=== PATIENT | female | born 1970 | race Hispanic/Latino ===

== ENCOUNTER 2017-05-12 05:51 | Emergency (ER) | payer OTHER ==
[2017-05-12 06:51] LABS: Absolute Lymphocytes (CBC) 0.8 K/uL (0.7-4.9); Absolute Monocytes 0.7 K/uL (0.1-1.3); Absolute Neutrophil 13.4 K/uL (1.8-8.0); Eosinophils % 0.5 % (0-4.4); Hematocrit 36.4 % (36.0-45.0); Lymphocytes % 5.2 % (15.3-44.8); MCH 30.4 pg (27.0-35.0); MCV 92.7 fL (80-100); MPV 11.9 fL (7.6-11.3); Monocytes % 4.9 % (3.3-12.3); RBC Red Blood Cell Count 3.92 M/uL (3.86-4.86)
[2017-05-12 07:02] LABS: Potassium 3.7 mEq/L (3.6-5.0)
[2017-05-12 07:07] LABS: Protime INR 2.08
[2017-05-12 07:08] LABS: Albumin 4.7 g/dL (3.2-5.5); Bilirubin Direct 0.2 mg/dL (0-0.2); Bilirubin Total 1.3 mg/dL (0.3-1.2); Magnesium 1.6 mg/dL (1.8-2.5); Protein, Total 7.8 g/dL (6.0-8.3)
[2017-05-12 07:10] LABS: Urine Blood NEGATIVE (NEG); Urine Glucose NEGATIVE (NEG); Urine Protein 2+ (NEG); Urine pH 5.5 (5.0-7.0)
[2017-05-12 07:12] LABS: CKMB Creatine Kinase MB 1.1 ng/ml (0.3-4.0)
--- NOTE | 2017-05-12 07:55 | RAD REPORT ---
EXAM DESCRIPTION: Nel Single View05/12/2017 6:35 am CLINICAL HISTORY: Cough COMPARISON: 2017 FINDINGS: The lungs appear clear of acute infiltrate. The heart is normal size IMPRESSION: No acute abnormalities displayed
[2017-05-12] MEDS ORDERED: ACETAMINOPHEN 500 MG TAB ONE (08:31)
[2017-05-12] MEDS ORDERED: KETOROLAC 30 MG/ML INJ ONE (08:31)
[2017-05-12] MEDS ORDERED: MAGNESIUM SULFATE 1 gm IVPB 1 GM/100 ML BAG IV ONE (08:32)
--- NOTE | 2017-05-12 08:46 | ER ---
Nurse's Notes [facility] Name: Cindy Alfred Age: 47 yrs Sex: Female : 1970 Arrival Date: 05/12/2017 Time: 05:51 Bed 5 Private MD: Diagnosis: Cough;Leukocytosis Presentation: 05/12 05:55 Presenting complaint: Patient states: that she woke up this am at 0500 with a temp of fc 100.0, pain all over, cough, congestion with blood tinged sputum. Transition of care: patient was not received from another setting of care. Onset of symptoms was May 12, 2017 at 05:00. Care prior to arrival: None. 05:55 Method Of Arrival: Ambulatory 05:55 Acuity: LIZETT 3 Triage Assessment: 06:14 General: Appears in no apparent distress. Behavior is calm, cooperative. Pain: ak1 Complains of pain in all over body aches, headache. EENT: Parent/caregiver reports the patient having throat pain. Neuro: No deficits noted. Cardiovascular: No deficits noted. Respiratory: Airway is patent Breath sounds are clear bilaterally. GI: No signs and/or symptoms were reported involving the gastrointestinal system. : No signs and/or symptoms were reported regarding the genitourinary system. Derm: No signs and/or symptoms reported regarding the dermatologic system. Musculoskeletal: No signs and/or symptoms reported regarding the musculoskeletal system. 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 LMP N/A - Post-menopause fc Historical: - Allergies: 06:15 Codeine; 06:15 Vicodin; fc - Home Meds: 06:15 mycophenolate mofetil 500 mg Oral tab 2 tabs 2 times per day [Active]; losartan 50 mg fc oral tab 1 tab once daily [Active]; spironolactone 25 mg Oral tab 1 tab once daily [Active]; furosemide 40 mg Oral tab 1 tab once daily [Active]; levothyroxine 75 mcg tab 1 tab once daily [Active]; Xarelto 15 mg Oral tab 1 tab daily [Active]; desloratadine 5 mg oral tab 1 tab once daily [Active]; Iron CR 325 mg Oral daily [Active]; Keppra 500 mg Oral tab 1 tab 2 times per day [Active]; Singulair 10 mg Oral tab 1 tab once daily [Active]; - PMHx: 06:15 Fibromyalgia; Hypertension; Lupus; Migraines; Seizures; Hypothyroidism; blood clots; fc kidney insuff; - PSHx: 06:15 Cholecystectomy; Harpreet filter; fc - Immunization history:: Last tetanus immunization: up to date Flu vaccine is up to date. - Social history:: Smoking status: Patient/guardian denies using tobacco. Screenin:55 Abuse screen: Denies threats or abuse. Nutritional screening: No deficits noted. fc Tuberculosis screening: No symptoms or risk factors identified. Fall Risk Fall in past 12 months (25 points). Secondary diagnosis (15 points) seizures, No IV (0 pts). Ambulatory Aid- None/Bed Rest/Nurse Assist (0 pts). Gait- Weak (10 pts.). Mental Status- Overestimates/Forgets Limitations (15 pts.). Total Marquis Fall Scale indicates Low Risk Score (25-44 pts). Fall prevention measures have been instituted. Side Rails Up X 2 Placed close to Nursing Station Frequent Obs/Assesments occuring As available Patient and Family Educated on Fall Prevention Program and strategies. Assessment: 06:35 Reassessment: Patient appears in no apparent distress at this time. No changes from ak1 previously documented assessment. see triage assessment. 07:35 Reassessment: Patient appears in no apparent distress at this time. Patient and/or sg family updated on plan of care and expected duration. Pain level reassessed. Patient is alert, oriented x 3, equal unlabored respirations, skin warm/dry/pink. awaiting results at this time, awaiting new orders, will continue to monitor. 08:35 Reassessment: Patient appears in no apparent distress at this time. Patient and/or sg family updated on plan of care and expected duration. Pain level reassessed. Patient is alert, oriented x 3, equal unlabored respirations, skin warm/dry/pink. orders for blood cultures x2 received, pt medicated as ordered, will continue to monitor. 09:00 Reassessment: Patient appears in no apparent distress at this time. discharge orders sg received, IVPB Magnesium continues to infuse. Vital Signs: 05:55 Weight 83.46 kg (R); Height 5 ft. 4 in. (162.56 cm) (R); Pain 10/10; fc 06:14 BP 123 / 75; Pulse 77; Resp 20; Temp 98.5(O); Pulse Ox 100% on R/A; Pain 10/10; ak1 06:32 BP 129 / 75; Pulse 70; Resp 18; Pulse Ox 99% on R/A; ea 08:00 BP 138 / 78; Pulse 78; Resp 17; Pulse Ox 99% on R/A; sg 09:45 BP 112 / 72; Pulse 86; Resp 16; Pulse Ox 96% on R/A; Pain 0/10; iw 05:55 Body Mass Index 31.58 (83.46 kg, 162.56 cm) ED Course: 05:51 Patient arrived in ED. ds1 05:55 Arm band placed on Patient placed in an exam room, on a stretcher. fc 05:55 Patient has correct armband on for positive identification. Placed in gown. Bed in low fc position. Call light in reach. 06:10 Triage completed. fc 06:11 Jude Mccauley PA is PHCP. cp 06:11 Roger Decker MD is Attending Physician. cp 06:14 Emani Medina, TOSHIA is Primary Nurse. ak1 06:14 No provider procedures requiring assistance completed. ak1 06:31 X-ray completed. Portable x-ray completed in exam room. Patient tolerated procedure kw well. 06:32 XRAY Chest (1 view) In Process Unspecified. EDMS 06:37 Pulse ox on. NIBP on. ak1 06:37 EKG done, by ED staff, Flu and/or RSV swab sent to lab. Strep swab sent to lab. ak1 06:40 Basic Metabolic Panel Sent. cc 06:40 CKMB Creatine Kinase MB Sent. cc 06:41 CBC with Automated Diff Sent. cc 06:41 Liver (Hepatic) Function Sent. cc 06:41 Strep Sent. cc 06:41 Influenza Screen (a \T\ B) Sent. cc 06:41 Ckmb Sent. cc 06:41 CPK Sent. cc 06:41 Magnesium Sent. cc 06:41 PT-INR Sent. cc 06:42 Ptt, Activated Sent. cc 06:42 Troponin (emerg Dept Use Only) Sent. cc 06:42 BMP Sent. cc 06:42 LFT's Sent. cc 06:42 CBC with Diff Sent. cc 06:42 Initial lab(s) drawn, by de, sent to lab. Inserted saline lock: 22 gauge in left cc antecubital area, using aseptic technique. Blood collected. 07:24 Primary Nurse role handed off by Emani Medina RN 07:24 Gino Su, RN is Primary Nurse. sg 07:35 Yehuda Stinson MD is Attending Physician. cp 09:41 IV discontinued, intact, bleeding controlled, No redness/swelling at site. Pressure sg dressing applied. Administered Medications: 08:15 Drug: Tylenol 1000 mg Route: PO; sg 09:45 Follow up: Response: No adverse reaction; Pain is decreased iw 08:15 Drug: Magnesium Sulfate 1 grams Route: IVPB; Infused Over: 1 hrs; Site: left sg antecubital; 09:24 Follow up: Response: No adverse reaction; IV Status: Completed infusion sg 08:15 Drug: TORadol 15 mg Route: IVP; Site: left antecubital; sg 09:45 Follow up: Response: No adverse reaction; Pain is decreased iw Outcome: 08:46 Discharge ordered by MD. cp 09:39 Discharged to home ambulatory, with family. sg 09:39 Condition: good 09:39 Discharge instructions given to patient, family, Instructed on discharge instructions, follow up and referral plans. medication usage, safety practices, Demonstrated understanding of instructions, follow-up care, medications, Prescriptions given X 1. 09:46 Patient left the ED. Signatures: Dispatcher [employer] EDMS Gino Su, TOSHIA POPE Gisselle Curtis RN RN Lizy Ko ds1 Arianna Evans RN RN Arti Olivares [place] Emani Medina RN RN ak1 Jude Mccauley PA PA Binta Butterfield RN RN ea Corrections: (The following items were deleted from the chart) 06:11 05:55 Fall Risk None identified. [facility] 08:40 08:15 TORadol 15 mg IVP in right antecubital [facility]
--- NOTE | 2017-05-12 08:46 | EDPHYS ---
Physician Documentation [facility] Name: Cindy Alfred Age: 47 yrs Sex: Female : 1970 Arrival Date: 05/12/2017 Time: 05:51 Bed 5 Private MD: ED Physician Yehuda Stinson HPI: 05/12 06:35 This 47 yrs old Female presents to ER via Ambulatory with complaints of Fever, cp Pain all Over. 06:35 The patient reports fever, that was measured at 100 degrees Fahrenheit. cp 06:35 Onset: The symptoms/episode began/occurred this morning. cp 06:35 Associated signs and symptoms: Pertinent positives: cough, Pertinent negatives: cp abdominal pain, altered mental status, chest pain, diarrhea, headache, vomiting. 06:35 Severity of symptoms: in the emergency department the symptoms are unchanged despite cp home interventions. 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 LMP N/A - Post-menopause fc Historical: - Allergies: 06:15 Codeine; fc 06:15 Vicodin; fc - Home Meds: 06:15 mycophenolate mofetil 500 mg Oral tab 2 tabs 2 times per day [Active]; losartan 50 mg fc oral tab 1 tab once daily [Active]; spironolactone 25 mg Oral tab 1 tab once daily [Active]; furosemide 40 mg Oral tab 1 tab once daily [Active]; levothyroxine 75 mcg tab 1 tab once daily [Active]; Xarelto 15 mg Oral tab 1 tab daily [Active]; desloratadine 5 mg oral tab 1 tab once daily [Active]; Iron CR 325 mg Oral daily [Active]; Keppra 500 mg Oral tab 1 tab 2 times per day [Active]; Singulair 10 mg Oral tab 1 tab once daily [Active]; - PMHx: 06:15 Fibromyalgia; Hypertension; Lupus; Migraines; Seizures; Hypothyroidism; blood clots; fc kidney insuff; - PSHx: 06:15 Cholecystectomy; Harpreet filter; fc - Immunization history:: Last tetanus immunization: up to date Flu vaccine is up to date. - Social history:: Smoking status: Patient/guardian denies using tobacco. ROS: 06:35 Constitutional: Negative for body aches, chills, fever, poor PO intake. cp 06:35 Eyes: Negative for injury, pain, redness, and discharge. cp 06:35 Eyes: Negative for discharge, icterus, pain, redness. cp 06:35 ENT: Negative for drainage from ear(s), ear pain, sore throat, difficulty swallowing, difficulty handling secretions. 06:35 Cardiovascular: Negative for chest pain, edema, palpitations. 06:35 Respiratory: Positive for cough, "sounds productive", Negative for shortness of breath, wheezing. 06:35 Abdomen/GI: Negative for abdominal pain, nausea, vomiting, and diarrhea, anorexia, black/tarry stool, rectal bleeding. 06:35 Back: Negative for pain at rest, pain with movement, radiated pain. 06:35 : Negative for urinary symptoms. 06:35 Skin: Negative for cellulitis, rash. 06:35 Neuro: Negative for altered mental status, headache, numbness, weakness. 06:35 All other systems are negative. Exam: 06:35 ECG was reviewed by the Attending Physician. cp 06:42 Constitutional: The patient appears in no acute distress, alert, awake, cp non-diaphoretic, non-toxic, well developed, well nourished, uncomfortable. 06:42 Head/Face: Normocephalic, atraumatic. Eyes: Pupils equal round and reactive to light, cp extra-ocular motions intact. Lids and lashes normal. Conjunctiva and sclera are non-icteric and not injected. Cornea within normal limits. Periorbital areas with no swelling, redness, or edema. 06:42 ENT: External ear(s): are unremarkable, Ear canal(s): are normal, clear, TM's: bulging, cp is not appreciated, bilaterally, dullness, bilaterally, erythema, is not appreciated, bilaterally, Nose: is normal, Mouth: Lips: moist, Oral mucosa: moist, Posterior pharynx: Airway: no evidence of obstruction, patent, Tonsils: no enlargement, no erythema, no exudate, Uvula: midline, non-edematous, no erythema, swelling, is not appreciated, erythema, that is mild, exudate, is not appreciated, Voice: is normal. 06:42 Neck: ROM/movement: is normal, is supple, without pain, no range of motions limitations, no meningismus, no nuchal rigidity, Lymph nodes: no appreciated lymphadenopathy. 06:42 Chest/axilla: Inspection: normal, Palpation: is normal, no crepitus, no tenderness. 06:42 Cardiovascular: Rate: normal, Rhythm: regular, Edema: is not appreciated, JVD: is not appreciated. 06:42 Respiratory: the patient does not display signs of respiratory distress, Respirations: normal, no use of accessory muscles, no retractions, no splinting, no tachypnea, labored breathing, is not present, Breath sounds: bronchial sounds, that are mild, are heard diffusely, decreased breath sounds, are not appreciated, stridor, is not appreciated, wheezing: is not appreciated. 06:42 Abdomen/GI: Inspection: abdomen appears normal, Bowel sounds: active, all quadrants, Palpation: abdomen is soft and non-tender, in all quadrants, voluntary guarding, is not appreciated, involuntary guarding, is not appreciated. 06:42 Back: CVA tenderness, is absent. 06:42 Skin: cellulitis, is not appreciated. 06:42 Neuro: Orientation: to person, place \\T\\ time. Mentation: lucid, able to follow commands, Cerebellar function: is grossly normal, Motor: moves all fours, strength is normal, Sensation: no obvious gross deficits. Vital Signs: 05:55 Weight 83.46 kg (R); Height 5 ft. 4 in. (162.56 cm) (R); Pain 10/10; fc 06:14 BP 123 / 75; Pulse 77; Resp 20; Temp 98.5(O); Pulse Ox 100% on R/A; Pain 10/10; ak1 06:32 BP 129 / 75; Pulse 70; Resp 18; Pulse Ox 99% on R/A; ea 08:00 BP 138 / 78; Pulse 78; Resp 17; Pulse Ox 99% on R/A; sg 09:45 BP 112 / 72; Pulse 86; Resp 16; Pulse Ox 96% on R/A; Pain 0/10; iw 05:55 Body Mass Index 31.58 (83.46 kg, 162.56 cm) fc MDM: 06:13 Patient medically screened. cp 07:00 Differential diagnosis: URI, bronchitis, pneumonia UTI, meningitis, sepsis. cp 08:45 Data reviewed: vital signs, nurses notes, lab test result(s), EKG, radiologic studies, cp plain films. 08:45 Test interpretation: by ED physician or midlevel provider: ECG, plain radiologic cp studies. Response to treatment: the patient's symptoms have markedly improved after treatment. 08:45 Counseling: I had a detailed discussion with the patient and/or guardian regarding: the cp historical points, exam findings, and any diagnostic results supporting the discharge/admit diagnosis, lab results, radiology results, the need for outpatient follow up, a family practitioner, to return to the emergency department if symptoms worsen or persist or if there are any questions or concerns that arise at home. 08:45 ED course: VSS. Pain improved with IV fluids and meds. Will discharge to home for cp continued monitoring. 05/12 06:20 Order name: CBC with Diff cp 05/12 06:20 Order name: LFT's cp 05/12 06:20 Order name: BMP cp 05/12 06:20 Order name: Ckmb cp 05/12 06:20 Order name: CPK; Complete Time: 07:52 cp 05/12 06:20 Order name: Magnesium; Complete Time: 07:52 cp 05/12 07:52 Interpretation: Abnormal: MG 1.6. cp 05/12 06:20 Order name: PT-INR; Complete Time: 07:13 cp 05/12 07:13 Interpretation: Abnormal: PT 24.7. cp 05/12 06:20 Order name: Ptt, Activated; Complete Time: 07:13 cp 05/12 07:13 Interpretation: Abnormal: PTT 41.4. cp 05/12 06:20 Order name: Troponin (emerg Dept Use Only); Complete Time: 07:13 cp 05/12 06:20 Order name: Influenza Screen (a \\T\\ B); Complete Time: 07:13 cp 05/12 06:20 Order name: Strep; Complete Time: 07:13 cp 05/12 06:20 Order name: CBC with Automated Diff; Complete Time: 08:58 EDMS 05/12 07:05 Interpretation: Normal except: WBC 15.0; HGB 11.9; MPV 11.9; NUNO% 89.4; LYM% 5.2; NEUT cp A 13.4. 05/12 06:20 Order name: Liver (Hepatic) Function; Complete Time: 07:52 EDMS 05/12 07:53 Interpretation: Normal except: BILIT 1.3. cp 05/12 06:20 Order name: Basic Metabolic Panel; Complete Time: 07:52 EDMS 05/12 07:53 Interpretation: Normal except: BUN 27; CRE 1.54; GFR 36. 05/12 06:20 Order name: XRAY Chest (1 view); Complete Time: 07:56 05/12 06:20 Order name: EKG; Complete Time: 06:21 cp 05/12 06:20 Order name: Cardiac monitoring; Complete Time: 06:58 05/12 06:20 Order name: EKG - Nurse/Tech; Complete Time: 06:35 cp 05/12 06:20 Order name: IV Saline Lock; Complete Time: 06:41 cp 05/12 06:20 Order name: Labs collected and sent; Complete Time: 06:41 05/12 06:20 Order name: O2 Per Protocol; Complete Time: 06:35 05/12 06:20 Order name: CKMB Creatine Kinase MB; Complete Time: 07:52 EDMS 05/12 07:01 Order name: Urine Dipstick--Ancillary (enter results); Complete Time: 07:13 05/12 07:36 Interpretation: Normal except: UPROT 2+. 05/12 07:01 Order name: Urine --Ancillary (enter results); Complete Time: 07:13 05/12 07:16 Order name: Throat Culture EDNV 05/12 07:58 Order name: Blood Culture Adult (2) 05/12 08:58 Order name: CBC Smear Scan; Complete Time: 08:58 EDNV 05/12 08:59 Interpretation: Reviewed. 05/12 06:20 Order name: O2 Sat Monitoring; Complete Time: 06:35 05/12 06:20 Order name: Urine Dipstick-Ancillary (obtain specimen); Complete Time: 06:58 05/12 06:20 Order name: Urine Test (obtain specimen); Complete Time: 06:57 cp EC:35 Rate is 78 beats/min. Rhythm is regular. MA interval is normal. QRS interval is normal. cp QT interval is normal. T waves are Flattened in leads V4, V5, V6. Interpreted by me. Reviewed by me. Administered Medications: 08:15 Drug: Tylenol 1000 mg Route: PO; sg 09:45 Follow up: Response: No adverse reaction; Pain is decreased iw 08:15 Drug: Magnesium Sulfate 1 grams Route: IVPB; Infused Over: 1 hrs; Site: left sg antecubital; 09:24 Follow up: Response: No adverse reaction; IV Status: Completed infusion sg 08:15 Drug: TORadol 15 mg Route: IVP; Site: left antecubital; 09:45 Follow up: Response: No adverse reaction; Pain is decreased iw Disposition: 14:34 Co-signature as Attending Physician, Yehuda Stinson MD. rn Disposition: 05/12/17 08:46 Discharged to Home. Impression: Cough, Leukocytosis. - Condition is Stable. - Discharge Instructions: Cool Mist Vaporizers, Cough, Adult, Leukocytosis. - Prescriptions for Zithromax Z- Jaswinder 250 mg Oral Tablet - take 1 tablet by ORAL route as directed for 5 days Day 1 - take two (2) tablets one time. Day 2, 3, 4 , 5 take one (1) tablet once daily.; 6 tablet. - Work release form, Medication Reconciliation Form, Thank You Letter, Antibiotic Education, Prescription Opioid Use form. - Follow up: Private Physician; When: 1 - 2 days; Reason: Recheck today's complaints. - Problem is new. - Symptoms have improved. Signatures: Dispatcher [employer] Gino Bailey RN RN Gisselle Curtis RN TOSHIA Yehuda Stinson MD MD rn Page, Corey, PA PA cp Williams, Irene RN iw
[2017-05-12 08:58] LABS: Blood Morphology Comment NOT SEEN (NOT SEEN); Platelet Estimate ADEQ; Urine White Blood Cell Casts OK
[2017-05-12 09:52] VITALS: TEMP 98.5
[2017-05-12 09:55] VITALS: BP 112/72; O2SAT 96
--- NOTE | 2017-05-12 16:28 | EKG ---
Test Date: 2017-05-12 Test Time: 06:32:01 Chiropractic Care: [facility] MEASUREMENT RESULTS: Intervals: Rate: 78 PA: 128 QRSD: 80 QT: 372 QTc: 424 [place]: P: 16 PA: 128 QRS: 24 T: 71 INTERPRETIVE STATEMENTS: Normal sinus rhythm Nonspecific T wave abnormality Abnormal ECG Compared to ECG 03/01/2017 13:17:17 T-wave abnormality now present Sinus bradycardia no longer present Electronically Signed On 05-12-17 16:25:04 CDT by Pasquale Padilla
== END 2017-05-12 09:46 | disposition home or self-care (01) ==
LOC: ER 05:51
DX: D72.829 Elevated white blood cell count, unspecified (principal); I10 Essential (primary) hypertension; G40.909 Epilepsy, unspecified, not intractable, without status epilepticus; E03.9 Hypothyroidism, unspecified; Z88.5 Allergy status to narcotic agent; Z79.01 Long term (current) use of anticoagulants
CPT/HCPCS: 36415; 71045; 80048; 80076; 81003; 81025; 82550; 82553; 83735; 84484; 85025; 85610; 85730; 87040 ×2; 87070; 87081; 87804 ×2; 93005; 96365; 96375; 99284; J3475

== ENCOUNTER 2017-10-12 12:04 | Emergency (ER) | payer OTHER ==
[2017-10-12] MEDS ORDERED: NA CHLORIDE 0.9% 500 ML ONE (13:51)
[2017-10-12 13:54] LABS: Urine Bacteria <20 /HPF (<20); Urine Culture Reflex Order NOT NEEDED; Urine RBC NONE SEEN /HPF (NONE SEEN)
[2017-10-12 14:01] LABS: Absolute Lymphocytes (CBC) 1.7 K/uL (0.7-4.9); Absolute Monocytes 0.4 K/uL (0.1-1.3); Absolute Neutrophil 2.6 K/uL (1.8-8.0); Basophils % 0.6 % (0-1.3); Eosinophils % 1.2 % (0-4.4); Hematocrit 33.8 % (36.0-45.0); Lymphocytes % 35.1 % (15.3-44.8); MCH 30.8 pg (27.0-35.0); MCV 93.1 fL (80-100); MPV 11.7 fL (7.6-11.3); Monocytes % 8.8 % (3.3-12.3); RBC Red Blood Cell Count 3.63 M/uL (3.86-4.86)
--- NOTE | 2017-10-12 14:04 | RAD REPORT ---
EXAM DESCRIPTION: CT - Stone Protocol - 10/12/2017 1:54 pm CLINICAL HISTORY: Abdominal pain, left flank pain COMPARISON: CT study November 2011 TECHNIQUE: Axial 5 mm thick images were obtained without oral or IV contrast. The [id number]-afze span s the entirety of the system including uppermost abdomen and lung bases. All CT scans are performed using dose optimization technique as appropriate and may include automated exposure control or mA/KV adjustment according to patient size. FINDINGS: No hydronephrosis is present and no obstructing ureteral calculi. No suspicious renal mass es. Isodense masses and pyelonephritis are not excluded on a stone protocol CT scan. Contracted urina ry bladder shows no suspicious finding. No suspicious uterine or ovarian finding. There is a 15 kenia meter cyst in the right ovary. Imaged portions of the liver, spleen and pancreas show no suspicious findings on non-contrast imaging . Cholecystectomy clips are present. No biliary tree dilatation. No significant adrenal finding. No suspicious bowel findings. No appendicitis. Patient has minimal diverticulosis without diverticuli tis or other acute GI process. No hernia, mass or bulky lymphadenopathy noted. No free air, free fluid or inflammatory stranding. No significant bony abnormality. No acute vascular finding suspected. IVC filter is in place. IMPRESSION: Noncontrast CT abdomen and pelvis imaging shows no acute finding. Above detailed findings are without significant or suspicious change from comparison. Isodense masses and pyelonephritis are not excluded on stone protocol technique.Solid abdominal visce ra assessment is limited in the absence of contrast.
[2017-10-12 14:20] LABS: Albumin 3.9 g/dL (3.4-5.0); Bilirubin Total 0.5 mg/dL (0.2-1.0); Potassium 3.7 mmol/L (3.5-5.1); Protein, Total 7.4 g/dL (6.4-8.2)
--- NOTE | 2017-10-12 14:33 | ER ---
Nurse's Notes [facility] Name: Cindy Alfred Age: 47 yrs Sex: Female : 1970 Arrival Date: 10/12/2017 Time: 12:06 Bed 25 Private MD: Diagnosis: Low back pain;Fibromyalgia;Unspecified kidney failure-insuficcency;Lupus erythematosus Presentation: 10/12 12:15 Presenting complaint: Patient states: left mid-back pain that began this morning. Pt aa5 denies N/V/D, denies urinary symptoms. Transition of care: patient was not received from another setting of care. Onset of symptoms was October 12, 2017. Risk Assessment: Do you want to hurt yourself or someone else? Patient reports no desire to harm self or others. Initial Sepsis Screen: Does the patient meet any 2 criteria? No. Patient's initial sepsis screen is negative. Does the patient have a suspected source of infection? No. Patient's initial sepsis screen is negative. Care prior to arrival: None. 12:15 Method Of Arrival: Ambulatory aa5 12:15 Acuity: LIZETT 3 aa5 Triage Assessment: 14:00 General: Appears in no apparent distress. Behavior is calm, cooperative. Pain: iw Complains of pain in left mid back and left low back. 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 - Social history:: Smoking status: Patient/guardian denies using tobacco. - Ebola Screening: : No symptoms or risks identified at this time. - Family history:: not pertinent. Screenin:46 Abuse screen: Denies threats or abuse. Denies injuries from another. Nutritional iw screening: No deficits noted. Tuberculosis screening: No symptoms or risk factors identified. Fall Risk IV access (20 points). Assessment: 14:10 General: Appears in no apparent distress. comfortable, Behavior is calm, cooperative. iw Pain: Complains of pain in left mid back and left low back. Neuro: Level of Consciousness is awake, alert, obeys commands, Oriented to person, place, time, situation. 15:46 Reassessment: Patient appears in no apparent distress at this time. Patient and/or iw family updated on plan of care and expected duration. Pain level reassessed. Patient is alert, oriented x 3, equal unlabored respirations, skin warm/dry/pink. Patient states feeling better. Patient states symptoms have improved. Vital Signs: 12:17 BP 152 / 77; Pulse 65; Resp 18 S; Temp 97.8(TE); Pulse Ox 98% on R/A; Weight 85.28 kg aa5 (R); Height 5 ft. 3 in. (160.02 cm) (R); Pain 3/10; 15:46 BP 157 / 74; Pulse 60; Resp 16; Pulse Ox 98% on R/A; Pain 3/10; iw 12:17 Body Mass Index 33.30 (85.28 kg, 160.02 cm) aa5 ED Course: 12:06 Patient arrived in ED. rg4 12:16 Triage completed. aa5 12:16 Arm band placed on. aa5 12:16 Patient has correct armband on for positive identification. iw 13:27 Jude Yousif MD is Attending Physician. arnol 13:37 Gino Su, TOSHIA is Primary Nurse. sg 13:[address] via wheelchair. sw 13:51 CT completed. Patient tolerated procedure well. Patient moved back from CT. sw 13:54 CT Stone Protocol In Process Unspecified. EDMS 15:07 Urine --Ancillary (enter results) Sent. dm5 15:07 Urine Dipstick--Ancillary (enter results) Sent. dm5 15:47 No provider procedures requiring assistance completed. IV discontinued, intact, iw bleeding controlled, No redness/swelling at site. Pressure dressing applied. Administered Medications: 14:13 Drug: NS 0.9% 500 ml Route: IV; Rate: bolus; Site: left antecubital; sg 15:20 Follow up: IV Status: Completed infusion iw Outcome: 14:32 Discharge ordered by . arnol 15:47 Discharged to home ambulatory. iw 15:47 Condition: good 15:47 Discharge instructions given to patient, family, Instructed on discharge instructions, follow up and referral plans. Demonstrated understanding of instructions, follow-up care. 15:48 Patient left the ED. iw Addendum: 10/16/2017 11:26 Addendum: Culture Results: Patient was not prescribed antibiotics at discharge. Report s s given to [facility] for further evaluation and then to medical laboratory scientist for follow up with patient. Phone call Attempt #1 patient reports she is feeling better, no s/s of UTI. Pt verbalizes understanding importance of follow up care. Signatures: Dispatcher [employer] Melissa Wall, TOSHIA RN dm5 Gino Su RN Jude Navas MD MD cha Williams, Irene, RN Maria Whitfield, RN RN aa5 Zoe Solis, RN Dinorah Rai Rubi rg4
--- NOTE | 2017-10-12 14:33 | EDPHYS ---
Physician Documentation [facility] Name: Cindy Alfred Age: 47 yrs Sex: Female : 1970 Arrival Date: 10/12/2017 Time: 12:06 Bed 25 Private MD: ED Physician Jude Yousif HPI: 10/12 13:55 This 47 yrs old Female presents to ER via Ambulatory with complaints of Low arnol Back Pain. 13:55 The patient presents with pain that is acute. The symptoms are located in the left low arnol back and left mid back. The pain does not radiate. The problem was sustained from unknown cause. Onset: The symptoms/episode began/occurred this morning. Modifying factors: The patient symptoms are alleviated by nothing, the patient symptoms are aggravated by nothing. Associated signs and symptoms: The patient has no apparent associated signs or symptoms. Severity of symptoms: At their worst the symptoms were mild, in the emergency department the symptoms are unchanged. The patient has not experienced similar symptoms in the past. 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 - Social history:: Smoking status: Patient/guardian denies using tobacco. - Ebola Screening: : No symptoms or risks identified at this time. - Family history:: not pertinent. ROS: 13:55 Constitutional: Negative for fever, chills, and weight loss, Eyes: Negative for injury, arnol pain, redness, and discharge, ENT: Negative for injury, pain, and discharge, Neck: Negative for injury, pain, and swelling, Cardiovascular: Negative for chest pain, palpitations, and edema, Respiratory: Negative for shortness of breath, cough, wheezing, and pleuritic chest pain, Abdomen/GI: Negative for abdominal pain, nausea, vomiting, diarrhea, and constipation, : Negative for injury, bleeding, discharge, and swelling, MS/Extremity: Negative for injury and deformity, Skin: Negative for injury, rash, and discoloration, Neuro: Negative for headache, weakness, numbness, tingling, and seizure, Psych: Negative for depression, anxiety, suicide ideation, homicidal ideation, and hallucinations, Allergy/Immunology: Negative for hives, rash, and allergies, Endocrine: Negative for neck swelling, polydipsia, polyuria, polyphagia, and marked weight changes, Hematologic/Lymphatic: Negative for swollen nodes, abnormal bleeding, and unusual bruising. 13:55 Back: Positive for flank pain, on the left. Exam: 13:55 Constitutional: This is a well developed, well nourished patient who is awake, alert, arnol and in no acute distress. Head/Face: Normocephalic, atraumatic. Eyes: Pupils equal round and reactive to light, extra-ocular motions intact. Lids and lashes normal. Conjunctiva and sclera are non-icteric and not injected. Cornea within normal limits. Periorbital areas with no swelling, redness, or edema. ENT: Nares patent. No nasal discharge, no septal abnormalities noted. Tympanic membranes are normal and external auditory canals are clear. Oropharynx with no redness, swelling, or masses, exudates, or evidence of obstruction, uvula midline. Mucous membranes moist. Neck: Trachea midline, no thyromegaly or masses palpated, and no cervical lymphadenopathy. Supple, full range of motion without nuchal rigidity, or vertebral point tenderness. No Meningismus. Chest/axilla: Normal chest wall appearance and motion. Nontender with no deformity. No lesions are appreciated. Cardiovascular: Regular rate and rhythm with a normal S1 and S2. No gallops, murmurs, or rubs. Normal PMI, no JVD. No pulse deficits. Respiratory: Lungs have equal breath sounds bilaterally, clear to auscultation and percussion. No rales, rhonchi or wheezes noted. No increased work of breathing, no retractions or nasal flaring. Abdomen/GI: Soft, non-tender, with normal bowel sounds. No distension or tympany. No guarding or rebound. No evidence of tenderness throughout. Skin: Warm, dry with normal turgor. Normal color with no rashes, no lesions, and no evidence of cellulitis. MS/ Extremity: Pulses equal, no cyanosis. Neurovascular intact. Full, normal range of motion. Neuro: Awake and alert, GCS 15, oriented to person, place, time, and situation. Cranial nerves II-XII grossly intact. Motor strength 5/5 in all extremities. Sensory grossly intact. Cerebellar exam normal. Normal gait. Psych: Awake, alert, with orientation to person, place and time. Behavior, mood, and affect are within normal limits. 13:55 Back: pain, that is very mild, that is mild, ROM is normal, normal spinal alignment noted, CVA tenderness, that is mild, is noted on the left. 15:46 Musculoskeletal/extremity: DVT Exam: no pain, no tenderness, negative Homans' sign arnol noted on exam, no appreciated bluish discoloration, no erythema, no increased warmth, swelling, that is mild, usual. 15:46 Cardiovascular: Rate: normal, Rhythm: regular, Pulses: Pulses are 4+ in bilateral arnol radial, brachial, femoral, popliteal, posterior tibial and and dorsalis pedis arteries.. Heart sounds: normal, murmur, not appreciated, rub, not appreciated, gallop, not appreciated, Edema: pedal edema, that is very mild, JVD: is not appreciated. 15:46 Respiratory: the patient does not display signs of respiratory distress, Respirations: normal, Breath sounds: are clear throughout, no acute changes, Respiratory rate: 18 Vital Signs: 12:17 BP 152 / 77; Pulse 65; Resp 18 S; Temp 97.8(TE); Pulse Ox 98% on R/A; Weight 85.28 kg aa5 (R); Height 5 ft. 3 in. (160.02 cm) (R); Pain 3/10; 15:46 BP 157 / 74; Pulse 60; Resp 16; Pulse Ox 98% on R/A; Pain 3/10; iw 12:17 Body Mass Index 33.30 (85.28 kg, 160.02 cm) aa5 MDM: 13:27 Patient medically screened. [facility] 14:00 Data reviewed: vital signs, nurses notes, lab test result(s), radiologic studies, CT [facility] scan. 10/12 12:40 Order name: Urine Culture [facility] 10/12 12:40 Order name: Urine Microscopic Only; Complete Time: 14:23 [facility] 10/12 13:30 Order name: CBC with Diff; Complete Time: 14:23 [facility] 10/12 13:30 Order name: Comprehensive Metabolic Panel; Complete Time: 14:23 [facility] 10/12 13:42 Order name: Urine Dipstick--Ancillary (enter results) bd 10/12 13:42 Order name: Urine --Ancillary (enter results) bd 10/12 12:40 Order name: Urine Test (obtain specimen); Complete Time: 13:37 [facility] 10/12 12:40 Order name: Urine Dipstick-Ancillary (obtain specimen); Complete Time: 13:38 snw 10/12 13:30 Order name: CT Stone Protocol; Complete Time: 14:23 [facility] 10/12 13:43 Order name: Urine Dipstick-Ancillary [facility] 10/12 13:43 Order name: Urine --Ancillary [facility] 10/12 13:55 Order name: Lipase arnol Administered Medications: 14:13 Drug: NS 0.9% 500 ml Route: IV; Rate: bolus; Site: left antecubital; 15:20 Follow up: IV Status: Completed infusion iw Disposition: 10/12/17 14:32 Discharged to Home. Impression: Low back pain, Fibromyalgia, Unspecified kidney failure - insuficcency, Lupus erythematosus. - Condition is Stable. - Discharge Instructions: Back Pain, Adult, Musculoskeletal Pain, Back Injury Prevention, Cvtu-la-Hyte, Back Pain, Adult, [id number], Chronic Kidney Disease, Adult, [id number]-[id number]. - Medication Reconciliation Form, Thank You Letter, Antibiotic Education, Prescription Opioid Use form. - Follow up: Private Physician; When: 2 - 3 days; Reason: Recheck today's complaints, Continuance of care, Re-evaluation by your physician. - Problem is new. - Symptoms have improved. Signatures: Dispatcher [employer] EDGino Amaya RN RN sg Anderson, Corey, MD MD cha Therrien, Shelly, BOOM MAN-C BOOM MAN-Csnw Arianna Evans RN RN Maria Tenorio RN RN aa5 Corrections: (The following items were deleted from the chart) 14:33 14:32 10/12/2017 14:32 Discharged to Home. Impression: Low back pain; Fibromyalgia; arnol Unspecified kidney failure - insuficcency. Condition is Stable. Forms are Medication Reconciliation Form, Thank You Letter, Antibiotic Education, Prescription Opioid Use. Follow up: Private Physician; When: 2 - 3 days; Reason: Recheck today's complaints, Continuance of care, Re-evaluation by your physician. Problem is new. Symptoms have improved. arnol 15:48 14:33 10/12/2017 14:32 Discharged to Home. Impression: Low back pain; Fibromyalgia; iw Unspecified kidney failure - insuficcency; Lupus erythematosus. Condition is Stable. Forms are Medication Reconciliation Form, Thank You Letter, Antibiotic Education, Prescription Opioid Use. Follow up: Private Physician; When: 2 - 3 days; Reason: Recheck today's complaints, Continuance of care, Re-evaluation by your physician. Problem is new. Symptoms have improved. arnol
[2017-10-12 15:59] VITALS: TEMP 97.8; O2SAT 98
[2017-10-12 16:01] VITALS: BP 157/74
[2017-10-12 21:44] LABS: Urine Blood NEGATIVE (NEG); Urine Glucose NEGATIVE (NEG); Urine Protein 2+ (NEG); Urine Specific Gravity 1.025 (1.005-1.030); Urine pH 5.5 (5.0-7.0)
== END 2017-10-12 15:48 | disposition home or self-care (01) ==
LOC: ER 12:04
DX: M79.7 Fibromyalgia (principal); N19 Unspecified kidney failure; L93.0 Discoid lupus erythematosus; I10 Essential (primary) hypertension; Z88.5 Allergy status to narcotic agent
CPT/HCPCS: 36415; 74176; 76377; 80053; 81003; 81015; 81025; 83690; 85025; 87077; 87086; 87088; 87186; 96360; 99284

== ENCOUNTER 2020-01-16 11:21 | Inpatient (IN) | payer OTHER ==
--- OUTSIDE RECORDS SUMMARY | 2020-01-16 11:31 | XMS REPORT | Continuity of Care Document ---
:1970 Author Organization [facility] t Address [address] [place] [address] Care Team Providers Name Role Phone Daysi LINTON Attending Clinician Jorje LINTON, Matt Attending Clinician Anders LINTON Attending Clinician Problems This patient has no known problems. Allergies, Adverse Reactions, Alerts This patient has no known allergies or adverse reactions. Medications This patient has no known medications. Procedures This patient has no known procedures. Encounters Start End Encounter Admission Attending Care Care Encounter Source Date/Time Date/Time Type Type Clinicians Facility Department ID 2019-12-17 2019-12-17 [id number] 00:00:00 00:00:00 Myke Good [id number] [place] [id number] Professio [phone] [address] 2019-12-11 2019-12-11 [facility] 1..[id number] 00:00:00 00:00:00 Myke Good [id number] [place] [id number] Professio [phone] [address] 2019-11-18 2019-11-18 [facility] 1..[id number] 00:00:00 00:00:00 Myke Good [id number] [place] [id number] Professio [phone] [place] 044 Building 2019-11-11 2019-11-11 [facility] [id number] 00:00:00 00:00:00 Jonathan Good [id number] [place] [id number] Professio [phone] nal 092 [facility] 2019-11-08 2019-11-08 [facility] [id number] 13:18:05 13:46:54 Visit Cristino Good [id number] [place] [id number] Professio [phone] [facility] 059 [facility] Results This patient has no known results.
--- OUTSIDE RECORDS SUMMARY | 2020-01-16 11:31 | XMS REPORT | Summary of Care ---
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 [facility] 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 Myke Torrez MD [address] [place] [address] [address] [place] [address] Prediabetes Office Building [facility] Lab Main Phlebotomy Lab Professional Office Building [address] [place] [address] , [address] [place] [address] Allergies Active Allergy Reactions Severity Noted Date Comments Codeine Nausea and/or Vomiting 08/14/2005 Hydrocodone-Acetaminophen Nausea Only 08/14/2005 documented as of this encounter (statuses as of 10/20/2019) Medications Medication Sig Dispensed Refills Start Date End Date Status hydroxychloroquine Take 200 mg by 0 Active (PLAQUENIL) 200 mg mouth 2 (two) tablet times daily. mycophenolate mofetil Take 1,000 mg by 0 Active (CELLCEPT) 500 mg tablet mouth every 12 (twelve) hours. spironolactone 25 mg Take 25 mg by 0 Active tablet mouth daily. FERROUS SULFATE, DRIED Take by mouth. 0 Active (IRON, DRIED, ORAL) MULTIVITAMINS WITH Take 1 tablet by 0 Active FLUORIDE (MULTI-VITAMIN mouth daily. ORAL) Levothyroxine 75 mcg Take 1 capsule 90 capsule 3 12/17/2018 Active capsuleIndications: by mouth daily. Depression, unspecified depression type, Thyroid disease montelukast 10 mg Take 1 tablet by 90 tablet 3 12/17/2018 Active tabletIndications: mouth daily. Allergic rhinitis, unspecified seasonality, unspecified trigger rivaroxaban 15 mg Take 1 tablet by 30 tablet 0 02/21/2019 Active tabletIndications: mouth at prevention of deep vein bedtime. thrombosis recurrence Indications: Treatment to Prevent Recurrence of a Clot in a Deep Vein hydrocortisone 2.5 % Apply to 0 Active lotion area(s) 2 (two) times daily. losartan 50 mg Take 1 tablet by 90 tablet 3 2019 Active tabletIndications: mouth daily. Essential hypertension levETIRAcetam 500 mg TAKE 1 TABLET BY 90 tablet 0 08/23/2019 Active tabletIndications: MOUTH IN THE History of seizure MORNING AND 2 IN THE EVENING furosemide 40 mg Take 1 tablet by 30 tablet 3 10/04/2019 Active tabletIndications: Other mouth daily. secondary hypertension, Essential hypertension, Edema, lower extremity CETIRIZINE 10 mg Take 1 tablet by 30 tablet 0 10/17/2019 Active tabletIndications: mouth once daily Allergic rhinitis, unspecified seasonality, unspecified trigger documented as of this encounter (statuses as of 10/20/2019) Active Problems Problem Noted Date Edema, lower extremity 10/04/2019 Excoriated acne 03/13/2019 Anxiety 03/08/2019 Prediabetes 03/08/2019 Bacterial URI 02/22/2019 Substernal chest pain 02/22/2019 Hospital discharge follow-up 02/22/2019 Dyspnea 01/29/2019 Body aches 01/29/2019 Troponin I above reference range 01/29/2019 Elevated brain natriuretic peptide (BNP) level 019 Cough 12/21/2018 Contusion of right elbow, initial encounter 12/07/2018 Need for pneumococcal vaccination 12/07/2018 Urinary tract infection without hematuria, site unspec ified 11/23/2018 Infection due to Streptococcus pyogenes 10/06/2018 Pharyngotonsillitis 10/06/2018 Obesity (BMI 30-39.9) 09/26/2018 Abdominal pain, acute 09/26/2018 Breast lesion on mammography 09/15/2018 Seasonal allergies 09/07/2018 History of anemia of chronic disease 09/07/2018 Lupus nephritis 09/07/2018 Migraine without status migrainosus, not intractable, unspecified migraine 09/07/2018 type Grand mal seizure 09/07/2018 Systemic lupus erythematosus, unspecified SLE type, un specified organ 09/07/2018 involvement status Deep vein thrombosis (DVT) of femoral vein of right lo wer extremity, 09/07/2018 unspecified chronicity Allergic rhinitis, unspecified seasonality, unspecifie d trigger 09/07/2018 Depression, unspecified depression type 09/07/2018 Other secondary hypertension 09/07/2018 Left knee pain 05/24/2015 Right shoulder pain 03/30/2015 Seizures Presence of IVC filter Lupus Hypertension Hx of blood clots DVT (deep venous thrombosis) Chronic kidney disease Thyroid disease documented as of this encounter (statuses as of 10/20/2019) Immunizations Name Administration Dates Next Due Influenza Virus Vaccine Quad ID [id number] 10/25/2018 Pneumococcal 13 Conjugate, PCV13 (Prevnar 13) 12/06/2018 documented as of this encounter Social History Tobacco Use Types Packs/Day Years Used Date Never Smoker Smokeless Tobacco: Never Used Alcohol Use Drinks/Week oz/Week Comments No 0 Standard drinks or equivalent 0.0 Education Answer Date Recorded What is the highest level of school you have completed or 12 th grade 09/26/2018 the highest degree you have received? Financial Resource Strain Answer Date Recorded How hard is it for you to pay for the very basics like Somew hat hard 09/26/2018 food, housing, medical care, and heating? Food Insecurity Answer Date Recorded Within the past 12 months, you worried that your food would Never true 09/26/2018 run out before you got money to buy more. Within the past 12 months, the food you bought just didn't N ever true 09/26/2018 last and you didn't have money to get more. Transportation Needs Answer Date Recorded In the past 12 months, has lack of transportation kept you f rom No 09/26/2018 medical appointments or from getting medications? In the past 12 months, has lack of transportation kept you f rom No 09/26/2018 meetings, work, or getting things needed for daily living? Sex Assigned at Date Recorded Not on file COVID-19 Exposure Response Date Recorded In the last month, have you been in contact with No / Unsure 10/20/2019 7:53 AM CDT someone who was confirmed or suspected to have Coronavirus / COVID-19? documented as of this encounter Last Filed Vital Signs Not on filedocumented in this encounter Nursing Notes Gabriella Gmoes - 10/20/2019 8:00 AM CDT Venipuncture collection performed by clean technique on the left anticubitus. Total of 2 attempts were made. Slight pressure and a bandage/dressing were applied to the site(s). The patient experienced no complications. The following specimens were processed according to instructions and sent to [facility] laboratories per lab order on today: LT BLUE 3 SST RED LAV 2 PPT DK GREEN (LiHep) DK GREEN (SodH) FLOYD DK BLUE (K2) DK BLUE (S) ACD Blood Culture NIPT/NTD documented in this encounter Plan of Treatment Date Type Specialty Care Team Description 03/06/2020 Office Visit Family Medicine Myke Tavarez MD [address] [place] [address] [address] [place] [address] 15 Health Maintenance Due Date Last Done Comments DTaP,Tdap,and Td Vaccines (1 - Tdap) 04/20/1991 PNEUMOCOCCAL 0-64 YEARS COMBINED SERIES (2 01/31/201912/06 of 3 - PPSV23) Breast Cancer Screening (MAMMOGRAM) 09/11/2019 09/10/2018, 04/26/2004 INFLUENZA VACCINE (#1) 2019 PAP SMEAR 01/16/2020 01/15/2017 Depression Screening 04/15/2020 04/15/2019 Colorectal Cancer Screening 2022 documented as of this encounter Results Not on filedocumented in this encounter Visit Diagnoses Diagnosis Prediabetes Other abnormal glucose documented in this encounter Insurance Payer Benefit Plan / Subscriber ID Effective Dates Phone Addre ss Type Group MEDICARE MEDICARE PART [id number] 2005-Mayur [phone] Medicare A & [address] t [id number] [place]AEZ [id number] [facility] MEDICAID OF [id number] 2015-Mayur [phone] [address] Medicaid [place] t 0 [id number] [place] [address] documented as of this encounter
--- OUTSIDE RECORDS SUMMARY | 2020-01-16 11:31 | XMS REPORT | Summary of Care ---
:1970 Author Organization [facility] Address [address] [place] [address] Care Team Providers Name Role Phone MD Daysi Primary Care Provider Reason for Visit Reason Comments Results Encounter Details Date Type Department Care Team Description 10/19/2019 Telephone [facility] Pediatric and Myke Torrez MD Results Adult Primary Care- [address] [facility] [address] Good [facility] [address] [place] [address] [address] [place] [address] [phone] Allergies Active Allergy Reactions Severity Noted Date Comments Codeine Nausea and/or Vomiting 08/14/2005 Hydrocodone-Acetaminophen Nausea Only 08/14/2005 documented as of this encounter (statuses as of 10/19/2019) Medications Medication Sig Dispensed Refills Start Date [...] as of this encounter (statuses as of 10/19/2019) Active Problems Problem Noted Date Edema, lower [...] as of this encounter (statuses as of 10/19/2019) Immunizations Name Administration Dates Next Due Influenza [...] been in contact with No / Unsure 10/04/2019 12:43 PM CDT someone who was confirmed or suspected to have Coronavirus / COVID-19? documented as of this encounter Last Filed Vital Signs Not on filedocumented in this encounter Miscellaneous Notes Telephone Encounter - Marti Jordan RN - 10/19/2019 9:31 AM CDTLeft message informing patient that the test was reordered. Requested patient to return call to get scheduled for her to come in and have the POCT Hgb A1C performed in clinic again. elephone Encounter - Olga Troncoso - 10/19/2019 9:22 AM CDTPatient is calling stating that she had her finger pricked on 10/04/19 to check her A1C and is requesting a call back for here results. documented in this encounter Plan of Treatment Date Type Specialty Care Team Description 03/06/2020 Office Visit Family Medicine Myke Tavarez MD [address] [place] [address] Dr [place], [place] [address] [phone] Health Maintenance Due Date Last Done Comments DTaP,Tdap,and Td Vaccines (1 - Tdap) 04/20/1991 PNEUMOCOCCAL 0-64 YEARS COMBINED SERIES (2 01/31/201912/06 of 3 - PPSV23) Breast Cancer Screening (MAMMOGRAM) 09/11/2019 09/10/2018, 04/26/2004 INFLUENZA VACCINE (#1) 2019 PAP SMEAR 01/16/2020 01/15/2017 Depression Screening 04/15/2020 04/15/2019 Colorectal Cancer Screening 2022 documented as of this encounter Results Not on filedocumented in this encounter Insurance Payer Benefit Plan / Subscriber ID Effective Dates Phone Addre ss Type Group MEDICARE MEDICARE PART [id number] 2005-[place] [phone] Medicare A & B t 2 [id number] STEFFANY BAEZ [address] [facility] MEDICAID OF [id number] 2015-Mayur [phone] [address] Medicaid [place] t 0 [id number] [place] [address] documented as of this encounter
--- OUTSIDE RECORDS SUMMARY | 2020-01-16 11:32 | XMS REPORT | Summary of Care ---
:1970 Author Organization [facility] Address [address] [place] [address] Care Team Providers Name Role Phone MD Daysi Primary Care Provider Reason for Visit Reason Comments LAB WORK Encounter Details Date Type Department Care Team Description 10/26/2019 Telephone [facility] Pediatric and Myke Torrez MD LAB WORK Adult Primary Care- [address] [facility] 205 [address] [place] [address] [address] [place] [address] [phone] Allergies Active Allergy Reactions Severity Noted Date Comments Codeine Nausea and/or Vomiting 08/14/2005 Hydrocodone-Acetaminophen Nausea Only 08/14/2005 documented as of this encounter (statuses as of 10/27/2019) Medications Medication Sig Dispensed Refills Start Date [...] as of this encounter (statuses as of 10/27/2019) Active Problems Problem Noted Date Edema, lower [...] as of this encounter (statuses as of 10/27/2019) Immunizations Name Administration Dates Next Due Influenza Virus Vaccine Quad .5 mL IM 6+ MO 10/24/2019 Influenza Virus Vaccine Quad ID [id number] YRS [...] this encounter Miscellaneous Notes Telephone Encounter - Myke Tavarez MD - 10/27/2019 9:09 AM CDTPOCT A1c was ordered 10/07/2019, still pending. Future labs ordered, let patient know, thank you! Telephone Encounter - Mitch Jones MA - 10/26/2019 11:18 AM CDT Contacted patient to advise of lab results. Patient verbalized understanding of results and all instructions given. See note recorded below by provider. Myke Tavarez MD [facility] Med Nurse Von Willebrand Factor normal. Continue with plan of care as discussed, follow-up as scheduled Pt is requesting her A1C and Cholesterol labs be placed and advised when labs have been entered. MITCH JONES MA 10/26/2019 11:18 AM documented in this encounter Plan of Treatment Date Type Specialty Care Team Description 11/08/2019 Office Visit Cardiology Cristino Mcnamara M D [address] [facility] [address] [place] [address] 03/06/2020 Office Visit Family Medicine Myke Tavarez MD [address] [place] [address] [place] [address] 15 Name Type Priority Associated Diagnoses Order S chedule LIPID PANEL (04321)(TOTAL LAB Routine Essential hyper tension Expected: 10/27/2019, CHOLESTEROL, Expires: 2020 TRIGLYCERIDES, HDL) GLYCOSYLATED HEMOGLOBIN LAB Routine Prediabetes Expe cted: 10/27/2019, (A1C) Expires: 2020 CBC WITH DIFF LAB Routine Essential hypertension Expe cted: 10/27/2019, Expires: 2020 COMP. METABOLIC PANEL LAB Routine Essential hypertens ion Expected: 10/27/2019, (14621) Expires: 2020 FREE T4 LAB Routine Depression, unspecified Expe cted: 10/27/2019, depression type Expires: 10/26/2020 Thyroid disease FREE T3 LAB Routine Depression, unspecified Expe cted: 10/27/2019, depression type Expires: 10/26/2020 Thyroid disease THYROID STIMULATING LAB Routine Depression, unspecifi ed Expected: 10/27/2019, HORMONE depression type Expires: 10/26/2020 Thyroid disease Health Maintenance Due Date Last Done Comments DTaP,Tdap,and Td Vaccines (1 - Tdap) 04/20/1991 PNEUMOCOCCAL 0-64 YEARS COMBINED SERIES (2 01/31/201912/06 of 3 - PPSV23) Breast Cancer Screening (MAMMOGRAM) 09/11/2019 09/10/2018, 04/26/2004 PAP SMEAR 01/16/2020 01/15/2017 Depression Screening 04/15/2020 04/15/2019 Colorectal Cancer Screening 2022 INFLUENZA VACCINE Completed 10/24/2019 documented as of this encounter Results Not on filedocumented in this encounter Visit Diagnoses Diagnosis Essential hypertension - Primary Unspecified essential hypertension Prediabetes Other abnormal glucose Depression, unspecified depression type Thyroid disease Unspecified disorder of thyroid documented in this encounter Insurance Payer Benefit Plan / Subscriber ID Effective Dates Phone Addre ss Type Group MEDICARE MEDICARE PART [id number] 2005-Mayur [phone] [address] Medicare A & B t 2 [id number] STEFFANY BAEZ [phone] [facility] MEDICAID OF [id number] 2015-Mayur [phone] [address] Medicaid [place] t 0 [id number] [place] [address] documented as of this encounter
--- OUTSIDE RECORDS SUMMARY | 2020-01-16 11:32 | XMS REPORT | Summary of Care ---
:1970 Author Organization [facility] Address [address] [place] [address] Care Team Providers Name Role Phone MD Daysi Primary Care Provider Reason for Visit Reason Comments LAB WORK Encounter Details Date Type Department Care Team Description 10/26/2019 Telephone [facility] Pediatric and Myke Torrez MD LAB WORK Adult Primary Care- [address] [facility] [place] 205 146 [place] [address] [address] [place] [address] [phone] Allergies Active Allergy Reactions Severity Noted Date [...] this encounter Miscellaneous Notes Telephone Encounter - Mitch Jones MA - 10/27/2019 9:30 AM CDTCalled and spoke with patient. Pt was advised lab orders have been placed. Pt verbalized understanding. MITCH JNOES MA 10/27/2019 9:30 AM Telephone Encounter - Myke Tavarez MD - 10/27/2019 9:09 AM CDTPOCT A1c was ordered 10/07/2019, still pending. Future labs ordered, let patient know, thank you! Telephone Encounter - Mitch Jones MA - 10/26/2019 11:18 AM CDT Contacted patient to advise of lab results. Patient verbalized understanding of results and all instructions given. See note recorded below by provider. Myke Tavarez MD [facility] Med Nurse Von Willebrand Factor normal. Continue with plan of care as discussed, follow-up as scheduled Pt is requesting her A1C and Cholesterol labs be placed and advised when labs have been entered. MITCH JONES MA 10/26/2019 11:18 AM documented in this encounter Plan of Treatment Date Type Specialty Care Team Description 11/08/2019 Office Visit Cardiology Cristino Mcnamara M D [address] [facility] [address] [place], [place] [address] 03/06/2020 Office Visit Family Medicine Myke Tavarez MD [address] [place] [address] Dr [place] [address] [place] [address] Name Type Priority Associated Diagnoses Order S chedule LIPID PANEL (65353)(TOTAL LAB Routine Essential hyper tension Expected: 10/27/2019, CHOLESTEROL, Expires: 2020 TRIGLYCERIDES, HDL) GLYCOSYLATED HEMOGLOBIN LAB Routine Prediabetes Expe cted: 10/27/2019, (A1C) Expires: 2020 CBC WITH DIFF LAB Routine Essential hypertension Expe cted: 10/27/2019, Expires: 2020 COMP. METABOLIC PANEL LAB Routine Essential hypertens ion Expected: 10/27/2019, ([id number]) Expires: 2020 FREE T4 LAB Routine Depression, [...] Addre ss Type Group MEDICARE MEDICARE PART [id number] 2005-Mayur [phone] [address] Medicare A & B t 2 [id number] STEFFANY BAEZ [id number] [facility] MEDICAID OF [id number] 2015-Mayur [phone] [address] Medicaid [place] t 0 [id number] [place] [address] documented as of this encounter
--- OUTSIDE RECORDS SUMMARY | 2020-01-16 11:32 | XMS REPORT | Summary of Care ---
:1970 Author Organization [facility] Address [address] [place] [address] Care Team Providers Name Role Phone MD Daysi Primary Care Provider Reason for Visit Reason Comments LAB WORK Encounter Details Date Type Department Care Team Description 10/31/2019 Medical Doctor Nuclear Medicine Visit [facility] Milo Tavarez MD [address] [place] [address] Dr [address] [place], [place] [id number] Essential hypertension; Professional Office Pob, Adc Lab Main Prediabetes; Building Phlebotomy Depressi on, unspecified depression type; Lab Thyroid disease Professional Office [address] , [address] [place] [address] Allergies Active Allergy Reactions Severity Noted Date Comments Codeine Nausea and/or Vomiting 08/14/2005 Hydrocodone-Acetaminophen Nausea Only 08/14/2005 documented as of this encounter (statuses as of 10/31/2019) Medications Medication Sig Dispensed Refills Start Date [...] as of this encounter (statuses as of 10/31/2019) Active Problems Problem Noted Date Edema, lower [...] as of this encounter (statuses as of 10/31/2019) Immunizations Name Administration Dates Next Due Influenza [...] on filedocumented in this encounter Nursing Notes Debbie Duran - 10/31/2019 8:30 AM CDT Venipuncture collection performed by clean technique on the left forearm(s). Total of 1 attempts were made. Slight pressure and a bandage/dressing were applied to the site(s). The patient experienced no complications. The following specimens were processed according to instructions and sent to [facility] laboratories per lab order on 10/31/19: LT BLUE 1 SST RED 2 LAV PPT DK GREEN (LiHep) DK GREEN (SodH) FLOYD DK BLUE (K2) DK BLUE (S) ACD Blood Culture NIPT/NTD \ documented in this encounter Plan of Treatment Date Type Specialty Care Team Description 11/08/2019 Office Visit Cardiology Cristino Mcnamara M D [address] [place] [address] [address] [place], [place] [address] 03/06/2020 Office Visit Family Medicine Myke Tavarez MD [address] [place] [address] Dr [place] [address] [place] [address] Name Type Priority Associated Diagnoses Date/Ti me LIPID PANEL LAB Routine Essential hypertension 10/30 8:57 AM (39610)(TOTAL CDT CHOLESTEROL, TRIGLYCERIDES, HDL) COMP. METABOLIC PANEL LAB Routine Essential hypertens ion 10/31/2019 8:57 AM (64414) CDT FREE T4 LAB Routine Depression, unspecified 10/17 8:57 AM depression type CDT Thyroid disease FREE T3 LAB Routine Depression, unspecified 10/17 8:57 AM depression type CDT Thyroid disease THYROID STIMULATING LAB Routine Depression, unspecifi ed 10/31/2019 8:57 AM HORMONE depression type CDT Thyroid disease Health Maintenance Due Date Last [...] this encounter Visit Diagnoses Diagnosis Essential hypertension Unspecified essential hypertension Prediabetes Other abnormal glucose Depression, unspecified depression type Thyroid disease Unspecified disorder of thyroid documented in this encounter Insurance Payer Benefit Plan / Subscriber ID Effective Dates Phone Addre ss Type Group MEDICARE MEDICARE PART [id number] 2005-Mayur [phone] [address] Medicare A & B t 2 [id number] STEFFANY BAEZ [id number] [facility] MEDICAID OF [id number] 2015-Mayur [phone] [address] Medicaid [place] t 0 [id number] [place] [address] documented as of this encounter
--- OUTSIDE RECORDS SUMMARY | 2020-01-16 11:33 | XMS REPORT | Summary of Care ---
:1970 Author Organization [facility] Address [address] [place] [address] Care Team Providers Name Role Phone MD Daysi Primary Care Provider Reason for Visit Reason Comments Refill Request Encounter Details Date Type Department Care Team Description 11/18/2019 Refill [facility] Pediatric and Myke Torrez MD Refill Request Adult Primary Care- [address] [facility] [address] Good [place] [address] [place] [address] [address] [place] [address] [phone] Allergies Active Allergy Reactions Severity Noted Date Comments Codeine Nausea and/or Vomiting 08/14/2005 Hydrocodone-Acetaminophen Nausea Only 08/14/2005 documented as of this encounter (statuses as of 11/18/2019) Medications Medication Sig Dispensed Refills Start End Date Status Date hydroxychloroquine Take 200 mg by 0 Active (PLAQUENIL) 200 mg mouth 2 (two) tablet times daily. mycophenolate mofetil Take 1,000 mg 0 Active (CELLCEPT) 500 mg by mouth every tablet 12 (twelve) hours. spironolactone 25 mg Take 25 mg by 0 Active tablet mouth daily. FERROUS SULFATE, DRIED Take by 0 Active (IRON, DRIED, ORAL) mouth. MULTIVITAMINS WITH Take 1 tablet 0 Active FLUORIDE by mouth (MULTI-VITAMIN ORAL) daily. Levothyroxine 75 mcg Take 1 capsule 90 capsule 3 Active capsuleIndications: by mouth 9 Depression, daily. unspecified depression type, Thyroid disease montelukast 10 mg Take 1 tablet 90 tablet 3 Active tabletIndications: by mouth 9 Allergic rhinitis, daily. unspecified seasonality, unspecified trigger hydrocortisone 2.5 % Apply to 0 Active lotion area(s) 2 (two) times daily. furosemide 40 mg Take 1 tablet 30 tablet 3 Active tabletIndications: by mouth 0 Other secondary daily. hypertension, Essential hypertension, Edema, lower extremity rivaroxaban 15 mg Take 1 tablet 90 tablet 2 Active tabletIndications: by mouth at 0 prevention of deep bedtime. vein thrombosis Indications: recurrence treatment to prevent recurrence of a clot in a deep vein losartan 50 mg Take 1 tablet 90 tablet 3 A ctive tabletIndications: by mouth 0 Essential hypertension daily. LEVETIRACETAM 500 mg TAKE 1 TABLET 90 tablet 2 Active tabletIndications: BY MOUTH IN 0 History of seizure THE MORNING AND 2 IN THE EVENING CETIRIZINE 10 mg Take 1 tablet 30 tablet 0 Active tabletIndications: by mouth once 0 Allergic rhinitis, daily unspecified seasonality, unspecified trigger CETIRIZINE 10 mg Take 1 tablet 30 tablet 0 11/18/19 Discontinued tabletIndications: by mouth once 0 20 Allergic rhinitis, daily unspecified seasonality, unspecified trigger documented as of this encounter (statuses as of 11/18/2019) Active Problems Problem Noted Date Edema, lower [...] as of this encounter (statuses as of 11/18/2019) Immunizations Name Administration Dates Next Due Influenza [...] been in contact with No / Unsure 11/08/2019 1:17 PM CDT someone who was confirmed or suspected to have Coronavirus / COVID-19? documented as of this encounter Last Filed Vital Signs Not on filedocumented in this encounter Plan of Treatment Date Type Specialty Care Team Description 03/06/2020 Office Visit Family Medicine Myke Tavarez MD [address] [place] [address] Dr [address] [place], [place] [address] 08/07/2020 Office Visit Cardiology Cristino Mcnamara M D 146 [facility] [address] [place], [place] [address] Health Maintenance Due Date Last Done [...] filedocumented in this encounter Visit Diagnoses Diagnosis Allergic rhinitis, unspecified seasonali ty, unspecified trigger documented in this encounter Insurance Payer Benefit Plan / Subscriber ID Effective Dates Phone Addre ss Type Group MEDICARE MEDICARE PART [id number] 2005-Mayur [phone] [address] Medicare A & B t 2 [id number] STEFFANY BAEZ [address] [facility] MEDICAID OF [id number] 2015-Mayur [phone] [address] Medicaid [place] t 0 [id number] [place] [address] documented as of this encounter
--- OUTSIDE RECORDS SUMMARY | 2020-01-16 11:33 | XMS REPORT | Summary of Care ---
:1970 Author Organization [facility] Address [address] [place] [address] Care Team Providers Name Role Phone MD Daysi Primary Care Provider Reason for Visit Reason Comments Follow-up 9mo Encounter Details Date Type Department Care Team Description 11/08/2019 Office Visit [facility] Cristino Mcnamara M D Deep vein thrombosis (DVT) of femoral ve in of right lower extremity, unspecified chronicity (Primary Dx); Cardiology- [address] Essential hypertension; [address] [place] [address] DRIVE Obesity (BMI 30-39.9); Drive, [address] Stage 3 chronic kidney disease; [place], [place] [address] Nonrheumatic aortic valve insufficiency; [id number] Leg edema [phone] Allergies Active Allergy Reactions Severity Noted Date Comments Codeine Nausea and/or Vomiting 08/14/2005 Hydrocodone-Acetaminophen Nausea Only 08/14/2005 documented as of this encounter (statuses as of 11/08/2019) Medications Medication Sig Dispensed Refills Start End Status Date Date hydroxychloroquine Take 200 mg by 0 [...] mcg Take 1 capsule 90 capsule 3 12/18/19 Active capsuleIndications: by mouth 19 Depression, daily. unspecified depression type, Thyroid disease montelukast 10 mg Take 1 tablet 90 tablet 3 12/18/19 Active tabletIndications: by mouth 19 Allergic rhinitis, daily. unspecified seasonality, unspecified trigger hydrocortisone 2.5 % Apply to 0 Active lotion area(s) 2 (two) times daily. levETIRAcetam 500 mg TAKE 1 TABLET 90 tablet 0 08/23/19 Active tabletIndications: BY MOUTH IN 20 History of seizure THE MORNING AND 2 IN THE EVENING furosemide 40 mg Take 1 tablet 30 tablet 3 10/04/19 Active tabletIndications: by mouth 20 Other secondary daily. hypertension, Essential hypertension, Edema, lower extremity CETIRIZINE 10 mg Take 1 tablet 30 tablet 0 10/17/19 Active tabletIndications: by mouth once 20 Allergic rhinitis, daily unspecified seasonality, unspecified trigger rivaroxaban 15 mg Take 1 tablet 90 tablet 2 11/08/19 Active tabletIndications: by mouth at 20 prevention of deep bedtime. vein thrombosis Indications: recurrence treatment to prevent recurrence of a clot in a deep vein losartan 50 mg Take 1 tablet 90 tablet 3 11/08/19 A ctive tabletIndications: by mouth 20 Essential hypertension daily. rivaroxaban 15 mg Take 1 tablet 30 tablet 0 02/21/19 Discontinued tabletIndications: by mouth at 20 020 (Reorder) prevention of deep bedtime. vein thrombosis Indications: recurrence Treatment to Prevent Recurrence of a Clot in a Deep Vein losartan 50 mg Take 1 tablet 90 tablet 3 04/19/19 D iscontinued tabletIndications: by mouth 20 020 ( Reorder) Essential hypertension daily. documented as of this encounter (statuses as of 11/08/2019) Active Problems Problem Noted Date Edema, lower [...] as of this encounter (statuses as of 11/08/2019) Immunizations Name Administration Dates Next Due Influenza [...] of this encounter Last Filed Vital Signs Vital Sign Reading Time Taken Comments Blood Pressure 138/89 11/08/2019 1:22 PM CDT Pulse 85 11/08/2019 1:22 PM CDT Temperature - - Respiratory Rate 19 11/08/2019 1:22 PM CDT Oxygen Saturation 96% 11/08/2019 1:22 PM CDT Inhaled Oxygen Concentration - - Weight 91.8 kg (202 lb 6.4 oz) 11/08/2019 1:22 PM CDT Height 162.6 cm (5' 4") 11/08/2019 1:22 PM CDT Body Mass Index 34.74 11/08/2019 1:22 PM CDT documented in this encounter Progress Notes Cristino Mcnamara MD - 11/08/2019 1:20 PM CDT CARDIOLOGY CLINIC NOTE 11/08/2019 Reason for Referral/Presenting Complaint: troponin elevation, HTN, h/o DVT PCP: Myke Tavarez History of Present Illness: Cindy Gandhi is a 49 years old female with PMH HTN, obesity, CKD 3, SLE, recurrent DVT, s/p IVC filter, etc. She was admitted to [facility] in 01/2019 for bronchitis. Found to have troponin elevation around 0.1. Doing well now. No chest pain. Taking lasix daily. Has been on Xarelto. Nuclear stress test in 03/2019 showed no concerns. Mild leg edema at the end of day. Nuclear stress test 03/2019 A moderate in size of mild intensity partially reversible anterior perfusion defect, likely attenuation artifact. Preserved ejection fraction and normal wall thickening. Cardiovascular testing: EKG: Sinus rhythm with occasional Premature ventricular beats Nonspecific T wave abnormality Echocardiogram: Diastolic function is impaired relaxation. Left ventricular systolic function is normal. The right ventricle is normal in size and function. There is mild mitral regurgitation. Insufficient Tricuspid regurgitation jet to estimate RVSP. Mild to moderate aortic regurgitation. Review of Systems: General: (-) fever, (-) chills, (-) weight change, (-) dizziness, (-) fatigue Skin: (-) rash HEENT: (-) headache, (-) change in vision Neck: (-) difficulty swallowing Heme: negative Resp: (-) cough, (-) dyspnea on exertion Cardio: (-) chest pain, (-) palpitations, (-) syncope GI: (-) vomiting, (-) diarrhea : negative Endo: (-) diabetes, (-) thyroid disease Neuro: (-) numbness, (-) tingling, (-) weakness Back: (-) pain RANJANA: (-) muscle pain, (-) claudication Psych: (-) anxiety, (-) depression Past Medical History: Past Medical History: Diagnosis Date Chronic kidney disease DVT (deep venous thrombosis) Hx of blood clots Hypertension Left knee pain 05/24/2015 Lupus Presence of IVC filter Right shoulder pain 03/30/2015 Seasonal allergies Seizures Sickle cell anemia Thyroid disease Current Medications: Current Outpatient Medications Medication Sig Dispense Refill losartan 50 mg tablet Take 1 tablet by mouth daily. 90 tablet 3 rivaroxaban 15 mg tablet Take 1 tablet by mouth at bedtime. Indications: treatment to prevent recurrence of a clot in a deep vein 90 tablet 2 furosemide 40 mg tablet Take 1 tablet by mouth daily. 30 tablet 3 levETIRAcetam 500 mg tablet TAKE 1 TABLET BY MOUTH IN THE MORNING AND 2 IN THE EVENING 90 tablet0 hydrocortisone 2.5 % lotion Apply to area(s) 2 (two) times daily. Levothyroxine 75 mcg capsule Take 1 capsule by mouth daily. 90 capsule 3 montelukast 10 mg tablet Take 1 tablet by mouth daily. 90 tablet 3 MULTIVITAMINS WITH FLUORIDE (MULTI-VITAMIN ORAL) Take 1 tablet by mouth daily. FERROUS SULFATE, DRIED (IRON, DRIED, ORAL) Take by mouth. spironolactone 25 mg tablet Take 25 mg by mouth daily. hydroxychloroquine (PLAQUENIL) 200 mg tablet Take 200 mg by mouth 2 (two) times daily. mycophenolate mofetil (CELLCEPT) 500 mg tablet Take 1,000 mg by mouth every 12 (twelve) hours. CETIRIZINE 10 mg tablet Take 1 tablet by mouth once daily 30 tablet 0 No current facility-administered medications for this visit. Social History: Social History Socioeconomic History Marital status: Single Spouse name: n/a Number of children: 0 Years of education: 12 Highest education level: 12th grade Occupational History Occupation: unemployed Social Needs Financial resource strain: Somewhat hard Food insecurity Worry: Never true Inability: Never true Transportation needs Medical: No Non-medical: No Tobacco Use Smoking status: Never Smoker Smokeless tobacco: Never Used Substance and Sexual Activity Alcohol use: No Alcohol/week: 0.0 standard drinks Drug use: No Sexual activity: Not Currently Lifestyle Physical activity Days per week: Not on file Minutes per session: Not on file Stress: Not on file Relationships Social connections Talks on phone: Not on file Gets together: Not on file Attends yazidism service: Not on file Active member of club or organization: Not on file Attends meetings of clubs or organizations: Not on file Relationship status: Not on file Intimate partner violence Fear of current or ex partner: Not on file Emotionally abused: Not on file Physically abused: Not on file Forced sexual activity: Not on file Other Topics Concern Not on file Social History Narrative Not on file Family History Family History Problem Relation Age of Onset Hypertension Mother Hypertension Father Physical Examination: BP 138/89 (BP Location: Right arm, Patient Position: Sitting, BP CUFF SIZE: Adult Small) | Pulse 85 | Resp 19 | Ht 5' 4" (1.626 m) | Wt 202 lb 6.4 oz (91.8 kg) | SpO2 96% | BMI 34.74 kg/m Constitutional: alert and oriented x 3 (person, place and date/time); no apparent distress, obese ENT: normocephalic atraumatic, supple, no lymphadenopathy, no bruits, no JVD Lungs: clear to auscultation bilaterally Cardiovascular: S1, S2 normal, regular; no murmurs, rubs or gallops GI: soft; non-tender; non-distended; normoactive bowel sounds : not examined Musculoskeletal: Extremities: no clubbing, cyanosis, + traceedema Skin: no rashes Neuro: no focal deficits Assessment/Plan: ICD-10-CM ICD-9-CM 1. Deep vein thrombosis (DVT) of femoral vein of right lower extremity, unspecified chronicity I82.411 453.41 2. Essential hypertension I10 401.9 3. Obesity (BMI 30-39.9) E66.9 278.00 4. Stage 3 chronic kidney disease N18.3 585.3 5. Nonrheumatic aortic valve insufficiency I35.1 424.1 6. Leg edema R60.0 782.3 Troponin elevation--No chest pain or acute EKG changes. Likely type 2 HI vs non ischemic myocardial injury from viral etc. ECHO showed normal LVEF and wall motion. Lexiscan nuclear MPI showed no ischemia. Recurrent DVT--on xarelto.Refilled. No bleeding. HTN--controlled with losartan. Aortic regurgitation--mild to moderate. ECHO 2020. Leg edema--probably due to obesity and DVT etc. Continue lasix and spironolactone. BMP reviewed. Patient was counseled for lifestyle modifications including: diet, exercise and weight loss. RTC 9 months Cristino Mcnamara MD, FACC, YULY [employer] Compounding Supervisor, Division of Cardiology [facility] documented in this encounter Plan of Treatment Date Type Specialty Care Team Description 03/06/2020 Office Visit Family Medicine Myke Tavarez MD [address] [place] [address] [address] [place] [address] [phone] 08/07/2020 Office Visit Cardiology Cristino Mcnamara M D [address] [place] [address] [address] [place], [place] [address] [phone] Health Maintenance Due Date Last Done Comments DTaP,Tdap,and Td Vaccines (1 - Tdap) 04/20/1991 PNEUMOCOCCAL 0-64 YEARS COMBINED SERIES (2 01/31/201912/06 of 3 - PPSV23) Breast Cancer Screening (MAMMOGRAM) 09/11/2019 09/10/2018, 04/26/2004 PAP SMEAR 01/16/2020 01/15/2017 Depression Screening 04/15/2020 04/15/2019 Colorectal Cancer Screening 2022 INFLUENZA VACCINE Completed 10/24/2019 documented as of this encounter Results Not on filedocumented in this encounter Visit Diagnoses Diagnosis Deep vein thrombosis (DVT) of femoral ve in of right lower extremity, unspecified chronicity - Primary Essential hypertension Unspecified essential hypertension Obesity (BMI 30-39.9) Obesity, unspecified Stage 3 chronic kidney disease Nonrheumatic aortic valve insufficiency Aortic valve disorders Leg edema Edema documented in this encounter Insurance Payer Benefit Plan / Subscriber ID Effective Dates Phone Addre ss Type Group MEDICARE MEDICARE PART [id number] 2005-Mayur [phone] Medicare A & B t 2 [id number] STEFFANY BAEZ [id number] [facility] MEDICAID OF [id number] 2015-Mayur [phone] [address] Medicaid [place] t 0 [id number] [place] [address] documented as of this encounter
--- OUTSIDE RECORDS SUMMARY | 2020-01-16 11:33 | XMS REPORT | Summary of Care ---
:1970 Author Organization [facility] Address [address] [place] [address] Care Team Providers Name Role Phone MD Daysi Primary Care Provider Reason for Visit Reason Comments Follow-up 9mo Encounter Details Date Type Department Care Team Description 11/08/2019 Office Visit [facility] Cristino Mcnamara M D Deep vein thrombosis (DVT) of femoral ve in of right lower extremity, unspecified chronicity (Primary Dx); Cardiology- [address] Essential hypertension; [address] [place] [address] DRIVE Obesity (BMI 30-39.9); Drive, [address] Stage 3 chronic kidney disease; [place], [place] [address] Nonrheumatic aortic valve insufficiency; [id number] Leg edema [phone] Allergies Active Allergy Reactions Severity Noted Date [...] IVC filter, etc. She was admitted to [facility] in 01/2019 for bronchitis. Found to have [...] file Gets together: Not on file Attends shinto service: Not on file Active member of [...] or acute EKG changes. Likely type 2 [place] vs non ischemic myocardial injury from viral [...] 9 months Cristino Mcnamara MD, FACC, YULY Electronics Engineer, Division of Cardiology [facility] documented in this encounter Plan of Treatment Date Type Specialty Care Team Description 03/06/2020 Office Visit Family Medicine Myke Tavarez MD [address] [place] [address] [address] [address] [phone] 08/07/2020 Office Visit Cardiology Cristino Mcnamara M D [address] [place] [address] [address] [place], [place] [address] [phone] Health Maintenance Due Date Last Done Comments [...] Addre ss Type Group MEDICARE MEDICARE PART [id number] 2005-Mayur [phone] [address] Medicare A & B t 2 [id number] STEFFANY BAEZ [id number] [facility] MEDICAID OF [id number] 2015-Mayur [phone] [address] Medicaid [place] t 0 [id number] [place] [address] documented as of this encounter
--- OUTSIDE RECORDS SUMMARY | 2020-01-16 11:33 | XMS REPORT | Summary of Care ---
:1970 Author Organization [address] [address] Care Team Providers Name Role Phone MD Daysi Primary Care Provider Reason for Visit Reason Comments Refill Request Encounter Details Date Type Department Care Team Description 11/11/2019 Refill [facility] Jonathan Recinos MD Refill Request Neurology-[address] [place] [address] [address] [place] [address] [phone] Allergies Active Allergy Reactions Severity Noted Date Comments Codeine Nausea and/or Vomiting 08/14/2005 Hydrocodone-Acetaminophen Nausea Only 08/14/2005 documented as of this encounter (statuses as of 11/11/2019) Medications Medication Sig Dispensed Refills Start End [...] THE MORNING AND 2 IN THE EVENING levETIRAcetam 500 mg TAKE 1 TABLET 90 tablet 0 11/10 Discontinued tabletIndications: BY MOUTH IN 0 20 History of seizure THE MORNING AND 2 IN THE EVENING documented as of this encounter (statuses as of 11/11/2019) Active Problems Problem Noted Date Edema, lower [...] as of this encounter (statuses as of 11/11/2019) Immunizations Name Administration Dates Next Due Influenza [...] this encounter Miscellaneous Notes Telephone Encounter - Hoda Simpson - 11/11/2019 11:40 AM CDTNOV not scheduled JULIETA 08/23/19 Per last chart note, medication refilled documented in this encounter Plan of Treatment Date Type Specialty Care Team Description 03/06/2020 Office Visit Family Medicine Myke Tavarez MD [address] [place] [address] [address] [place], [place] [address] 08/07/2020 Office Visit Cardiology Cristino Mcnamara M D [address] [facility] [address] [place], [place] [address] Health Maintenance Due Date [...] filedocumented in this encounter Visit Diagnoses Diagnosis History of seizure documented in this encounter Insurance Payer Benefit Plan / Subscriber ID Effective Dates Phone Addre ss Type Group MEDICARE MEDICARE PART [id number] 2005-Mayur [phone] [address] Medicare A & B t 2 [id number] STEFFANY BAEZ [address] [facility] MEDICAID OF [id number] 2015-Mayur [phone] [address] Medicaid [place] t 0 [id number] [place] [address] documented as of this encounter
--- OUTSIDE RECORDS SUMMARY | 2020-01-16 11:34 | XMS REPORT | Summary of Care ---
:1970 Author Organization [facility] Address [address] [place] [address] Care Team Providers Name Role Phone MD Daysi Primary Care Provider Reason for Visit Reason Comments Refill Request Encounter Details Date Type Department Care Team Description 12/11/2019 Refill [facility] Pediatric and Myke Torrez MD Refill Request Adult Primary Care- [address] [facility] [address] [place] [address] [address] [place] [address] [phone] Allergies Active Allergy Reactions Severity Noted Date Comments Codeine Nausea and/or Vomiting 08/14/2005 Hydrocodone-Acetaminophen Nausea Only 08/14/2005 documented as of this encounter (statuses as of 12/12/2019) Medications Medication Sig Dispensed Refills Start End [...] mg Take 1 tablet 30 tablet 0 12/12/19 Discontinued tabletIndications: by mouth once 0 20 Allergic rhinitis, daily unspecified seasonality, unspecified trigger documented as of this encounter (statuses as of 12/12/2019) Active Problems Problem Noted Date Edema, lower [...] as of this encounter (statuses as of 12/12/2019) Immunizations Name Administration Dates Next Due Influenza [...] Assigned at Date Recorded Not on file documented as of this encounter Last Filed Vital Signs Not on filedocumented in this encounter Plan of Treatment Date Type Specialty Care Team Description 03/06/2020 Office Visit Family Medicine Myke Tavarez MD [address] [place] [address] [address] [place], [place] [address] [phone] 08/07/2020 Office Visit Cardiology Cristino Mcnamara M D [address] [place] [address] [address] [place], [place] [address] Health Maintenance Due Date [...] Addre ss Type Group MEDICARE MEDICARE PART [id number] 2005-Mayur [phone] [address] Medicare A & B t 2 [id number] STEFFANY BAEZ [phone] [facility] MEDICAID OF [id number] 2015-Mayur [phone] [address] Medicaid [place] t 0 [id number] [place] [address] documented as of this encounter
--- OUTSIDE RECORDS SUMMARY | 2020-01-16 11:34 | XMS REPORT | Summary of Care ---
:1970 Author Organization [facility] Address [address] [place] [address] Care Team Providers Name Role Phone MD Daysi Primary Care Provider Reason for Visit Reason Comments Refill Request Encounter Details Date Type Department Care Team Description 12/17/2019 Refill [facility] Pediatric and Myke Torrez MD Refill Request Adult Primary Care- [address] [facility] [address] [place] [address] [address] [place] [address] [phone] Allergies Active Allergy Reactions Severity Noted Date Comments Codeine Nausea and/or Vomiting 08/14/2005 Hydrocodone-Acetaminophen Nausea Only 08/14/2005 documented as of this encounter (statuses as of 12/20/2019) Medications Medication Sig Dispensed Refills Start End [...] Active FLUORIDE by mouth (MULTI-VITAMIN ORAL) daily. montelukast 10 mg Take 1 tablet 90 [...] Allergic rhinitis, daily unspecified seasonality, unspecified trigger EUTHYROX 75 mcg Take 1 tablet 90 tablet 0 Active tabletIndications: by mouth once 0 Depression, daily unspecified depression type, Thyroid disease Levothyroxine 75 mcg Take 1 capsule 90 capsule 3 05/05 Discontinued capsuleIndications: by mouth 9 20 Depression, daily. unspecified depression type, Thyroid disease documented as of this encounter (statuses as of 12/20/2019) Active Problems Problem Noted Date Edema, lower [...] as of this encounter (statuses as of 12/20/2019) Immunizations Name Administration Dates Next Due Influenza [...] Telephone Encounter - Myke Tavarez MD - 12/20/2019 8:46 AM CSTRx sent, let patient know documented in this encounter Plan of Treatment Date Type Specialty Care Team Description 03/06/2020 Office Visit Family Medicine Myke Tavarez MD [address] [place] [address] [address] [place] [address] [phone] 08/07/2020 Office Visit Cardiology Cristino Mcnamara M D [address] [facility] [address] [place], [place] [address] Health Maintenance Due Date [...] filedocumented in this encounter Visit Diagnoses Diagnosis Depression, unspecified depression type Thyroid disease Unspecified disorder of thyroid documented in this encounter Insurance Payer Benefit Plan / Subscriber ID Effective Dates Phone Addre ss Type Group MEDICARE MEDICARE PART [id number] 2005-Mayur [phone] Medicare A & B t 2 [id number] STEFFANY BAEZ [address] [facility] MEDICAID OF [id number] 2015-Mayur [phone] [address] Medicaid [place] t 0 [id number] [place] [address] documented as of this encounter
[2020-01-16 12:18] VITALS: BMI 37.0
[2020-01-16 13:31] LABS: Arterial Blood Carboxyhemoglob 1.1 % (0-1.5); Blood Gas Oxyhemoglobin 95.3 % (94-97); Blood O2 Saturation 97.4 % (92-98.5)
[2020-01-16 13:47] LABS: Basophils % 0.9 % (0-1.3); Hematocrit 34.2 % (36.0-45.0); Lymphocytes % 19.2 % (15.3-44.8); MPV 10.8 fL (7.6-11.3); RBC Red Blood Cell Count 3.69 M/uL (3.86-4.86)
[2020-01-16 13:51] LABS: Urine Appearance CLEAR; Urine Bilirubin NEGATIVE (NEG); Urine Blood NEGATIVE (NEG); Urine Color YELLOW; Urine Glucose NEGATIVE (NEG); Urine Protein 2+ (NEG); Urine Specific Gravity 1.015 (1.005-1.030); Urine Urobilinogen 0.2 mg/dL (0.2-1.0); Urine pH 5.5 (5.0-7.0)
[2020-01-16] MEDS: NA CHLORIDE 0.9% 1,000 ML IV SCH (13:53)
[2020-01-16 14:23] LABS: Albumin 3.7 g/dL (3.4-5.0); Bilirubin Total 0.5 mg/dL (0.2-1.0); CKMB Creatine Kinase MB 1.5 ng/mL (0.3-3.6); Phosphorus 3.3 mg/dL (2.5-4.9); Potassium 4.2 mmol/L (3.5-5.1); Protein, Total 7.6 g/dL (6.4-8.2); Uric Acid 6.3 mg/dL (2.6-6.0)
[2020-01-16 15:04] LABS: Urine Microscopic Reflex ORDER UMIC
[2020-01-16 15:29] LABS: Urine Amorphous Sediment 1+ /HPF (NONE SEEN); Urine Bacteria <20 /HPF (<20); Urine RBC <5 /HPF (NONE SEEN)
[2020-01-16 16:02] LABS: Protime INR 1.16
--- NOTE | 2020-01-16 17:06 | RAD REPORT ---
EXAM DESCRIPTION: US - Renal Ultrasound-Complete - 01/16/2020 4:49 pm CLINICAL HISTORY: . Acute renal failure COMPARISON: None. FINDINGS: The right kidney measures 9 cm with a normal echotexture. The left kidney measures cm with a normal echotexture. Mild bilateral renal cortical thinning Hydronephrosis is not seen. No gross abnormality of bladder IMPRESSION: Mild bilateral renal cortical thinning may be secondary to prior inflammation
[2020-01-17] MEDS: NA CHLORIDE 0.9% 1,000 ML IV SCH ×3 (01:18→19:00)
[2020-01-17] MEDS ORDERED: MIDAZOLAM HCL 2 MG/2 ML INJ ONE (10:00)
[2020-01-17] MEDS ORDERED: NALOXONE 0.4 MG/ML VIAL ONE (10:01)
[2020-01-17] MEDS ORDERED: FENTANYL CITR 100 MCG/2 ML ONE (10:01)
[2020-01-17] MEDS ORDERED: Ringers Lactate 1,000 ML IV ONE (10:30)
--- NOTE | 2020-01-17 11:44 | CON ---
Date of Consultation: 01/17/2020 Additional Consulting Physician: Hospitalist. Reason For Consultation: Elevated BUN and creatinine. History Of Present Illness: This is a pleasant 49-year-old lady with significant past medical histor y of hypertension, SLE nephritis, used to follow up with Dr. He. Baseline creatinine around 1.5, G FR of 40. The patient came to the office with creatinine 1.7, GFR of 35 with a new onset of nephroti c range proteinuria, for that reason patient was directed to the hospital for admission for kidney bi opsy and workup for acute kidney injury. The patient denied any rashes. The patient been follow up with Rheumatology and being on Plaquenil and hydrocortisone. Upon arrival to the hospital, creatinin e slightly better down to 1.5, GFR of 35. The patient denied taking any nonsteroidal. Past Medical History: 1.Hypertension. 2.Hyperlipidemia. 3.Chronic kidney disease, stage 3 secondary SLE. 4.Nephrotic range proteinuria. Allergies: TYLENOL, CODEINE, HYDROCODONE, BARBITURATE, MORPHINE. Past Surgical History: Kidney biopsy. Family History: Positive for hypertension. Review of Systems: Head and Neck: No red eye. No ear pain. GI: No nausea. No vomiting. : Has foamy urine. HERB DOCTOR: No vaginal discharge. Respiratory: No shortness of breath. Cardiovascular: No chest pain. Endocrine: No polydipsia. Skin: No rash. Neuro: Generalized weakness. Musculoskeletal: No joint pain. Physical Examination: Vital Signs: Blood pressure 126/71, pulse of 71, afebrile. Chest: Clear to auscultation. Heart: S1 and S2 regular. Abdomen: Soft, nontender. Extremities: No edema. Neurologic: Alert and oriented x3. No focal. Laboratory Data: Sodium 140, potassium 4.2, bicarb 26, BUN 24, creatinine 1.5, uric acid 6.3, calciu m 8.9, phosphorus 3.3. WBC 10.4, H and H 11.6/34.2, platelets 209. Urinalysis negative for infectio n, had RBC less than 5, WBC of 10. Serum protein electrophoresis is still pending. Serology still p ending. Medications: Current medications in the hospital include IV fluid. Home medication includes Plaquen il, cetirizine, cholecalciferol, Lasix, hydrocortisone. Assessment/plan: 1.Acute kidney injury secondary to lupus nephritis with nephrotic range of proteinuria. We will pro ceed with the kidney biopsy. Continue hydration. We will get full serology workup for the patient a nd we will follow up. 2.Hypertension. Resume home blood pressure medication. 3.Vitamin D deficiency. Continue current supplement. 4.Systemic lupus erythematosus with lupus nephritis. As above, continue Plaquenil and hydrocortison e. We will follow up kidney biopsy and serology. Thank you for allowing us to participate in the care of your patient. KEITH Voice ID: [id number] Report ID: [id number]
--- NOTE | 2020-01-17 13:54 | RAD REPORT ---
EXAM DESCRIPTION: CT - Renal Biopsy CT - 01/17/2020 11:31 am CLINICAL HISTORY: Renal disease/elevated creatinine TECHNIQUE: The risks, benefits alternatives to the procedure were explained to the patient and infor med consent obtained Conscious sedation was performed for approximately 40 minutes. A nurse monitored vital signs througho ut the examination 4 milligrams Versed and 100 micrograms fentanyl administered intravenously All CT scans are performed using dose optimization technique as appropriate and may include automated exposure control or mA/KV adjustment according to patient size. The skin, subcutaneous tissue and musculature were anesthetized Lidocaine. Under CT guidance a 17 gauge needle was placed into the posterior aspect of the lower pole of the rig ht kidney. An 18 gauge needle was then placed through this and 2 two centimeter core specimens obtain ed and given to pathology. The post biopsy images demonstrate an approximately 3 centimeter 2.9 centimeter perinephric hematoma. IMPRESSION: Core biopsies of the right kidney
--- NOTE | 2020-01-17 16:49 | P.HP ---
Certification for Inpatient Patient admitted to: Observation With expected LOS: <2 Midnights Practitioner: I am a practitioner with admitting privileges, knowledge of patient current condition, hospital course, and medical plan of care. Services: Services provided to patient in accordance with Admission requirements found in Title 42 Section 412.3 of the Code of Federal Regulations Patient History Date of Service: 01/17/20 Reason for admission: Renal biopsy History of Present Illness: 49-year-old woman with a history of SLE, DVT, status post IVC filter, seizure disorder and chronic kidney disease was referred by her landscape engineer-Dr. Bolanos to be admitted overnight for renal biopsy. Renal biopsy was performed this morning. Patient seen after the biopsy and complaining of a little soreness at the biopsy site at the right flank. CT abdomen done during the biopsy none report right 3 x 3 cm perinephric hematoma. Noted patient is on Xarelto for DVT anticoagulation. She mentioned her last Xarelto dose was Thursday01/14/2020. Allergies acetaminophen [From Vicodin] Allergy (Verified 03/21/11 08:50) Hives codeine [Codeine] Allergy (Verified 03/21/11 08:44) Hives hydrocodone bitartrate [From Vicodin] Allergy (Verified 03/21/11 08:50) Hives morphine Allergy (Verified 03/21/11 08:50) Hives/Rash codeine Allergy (Uncoded 08/29/14 03:30) Unknown Home Medications: Cetirizine HCl [Zyrtec] 1 tab PO DAILY 01/16/20 Cholecalciferol (Vitamin D3) [Vitamin D3] 1 tab PO DAILY 01/16/20 Diphenhydramine [Benadryl*] 1 tab PO BEDTIME 01/16/20 Ferrous Sulfate [Ferrous Sulfate*] 1 tab PO DAILY 01/16/20 Furosemide [Lasix*] 1 tab PO SEECOM 01/16/20 Hydroxychloroquine [Plaquenil*] 1 tab PO BID 01/16/20 Levothyroxine [Synthroid*] 1 tab PO [id number] 01/16/20 Losartan Potassium [Cozaar*] 1 tab PO DAILY 01/16/20 Montelukast [Singulair*] 1 tab PO BEDTIME 01/16/20 Mv-Min/Iron/Folic/Calcium/Vitk [Women's Daily Formula Tablet] 1 tab PO DAILY 01/16/20 Mycophenolate Mofetil [Cellcept] 2 tab PO BID 01/16/20 Rivaroxaban [Xarelto*] 1 tab PO BEDTIME 01/16/20 levETIRAcetam [Keppra*] 1 tab PO DAILY 01/16/20 levETIRAcetam [Keppra*] 2 tab PO BEDTIME 01/16/20 - Past Medical/Surgical History Has patient received pneumonia vaccine in the past: No Diabetic: No -: HTN -: Seizure -: Blood clots -: Fribromyalgia -: SLE - Family History Family History: Reviewed- Non-Contributory - Social History Smoking Status: Never smoker Alcohol use: No CD- Drugs: No Caffeine use: Yes Place of Residence: Home Review of Systems Other: Except as documented, all other systems reviewed and negative. Physical Examination - Vital Signs Temperature: 97.9 F Blood Pressure: 126/71 Pulse: 71 Respirations: 17 Pulse Ox (%): 99 - Physical Exam General: Alert, In no apparent distress, Oriented x3 HEENT: Mucous membr. moist/pink Neck: Supple, JVD not distended Respiratory: Clear to auscultation bilaterally, Normal air movement Cardiovascular: Regular rate/rhythm, Normal S1 S2 Gastrointestinal: Normal bowel sounds, Soft and benign, No tenderness, Other (No flank tenderness) Integumentary: No rashes, No breakdown, Other (No hematoma) Neurological: Normal speech, Normal strength at 5/5 x4 extr Assessment and Plan - Problems (Diagnosis) (1) Renal hematoma Current Visit: Yes Status: Acute (2) Systemic lupus erythematosus Current Visit: No Status: Active (3) Chronic kidney disease, stage 3, mod decreased GFR Current Visit: Yes Status: Acute (4) Seizure disorder Current Visit: Yes Status: Acute (5) History of DVT (deep vein thrombosis) Current Visit: Yes Status: Acute - Plan Patient placed under observation. Monitor H and H Case discussed with Dr. Bolanos. Patient creatinine clearance is 65. Given Xarelto duration of action is 24 hours, and the patient's last dose is 48 hr ago, the effects of the Xarelto should have worn off by now and not contributing to the hematoma. She will therefore no benefit from reversal of Xarelto action. Will repeat renal ultrasound tomorrow. Monitor for pain which may suggest growing hematoma. Hold Xarelto. Continue antiseizure medications and immunosuppressants. Continue other home medications. - Advance Directives Does patient have a Living Will: Yes Does patient have a Durable POA for Healthcare: No
[2020-01-17] MEDS ORDERED: ACETAMINOPHEN 500 MG TAB PO PRN (18:56)
[2020-01-17] MEDS: levETIRAcetam 500 MG TAB PO SCH (20:51)
[2020-01-17] MEDS: HYDROXYCHLOROQUINE 200MG TAB PO SCH (20:52)
[2020-01-17] MEDS: HOME MED 1 EA UNK (Mycophenolate Mofetil [Cellcept] 2 TAB) PO SCH (20:53)
[2020-01-17] MEDS ORDERED: MONTELUKAST 10 MG TAB PO SCH (21:00)
[2020-01-17] MEDS ORDERED: DIPHENHYDRAMINE 25 MG TAB/CAP PO SCH (21:00)
[2020-01-17] MEDS: ONDANSETRON 4 MG/2 ML VIAL IV PRN (21:56)
[2020-01-18 04:08] LABS: Basophils % 0.6 % (0-1.3); Hematocrit 30.1 % (36.0-45.0); Lymphocytes % 29.3 % (15.3-44.8); RBC Red Blood Cell Count 3.24 M/uL (3.86-4.86)
[2020-01-18 04:15] LABS: Urine Protein/Creatinine Ratio 1.4 ratio (<0.15)
[2020-01-18 04:31] LABS: Albumin 3.1 g/dL (3.4-5.0); Phosphorus 3.1 mg/dL (2.5-4.9); Potassium 3.8 mmol/L (3.5-5.1)
[2020-01-18] MEDS: NA CHLORIDE 0.9% 1,000 ML IV SCH (05:23)
[2020-01-18] MEDS ORDERED: LEVOTHYROXINE SOD 0.075 MG TAB PO SCH (06:00)
[2020-01-18] MEDS ORDERED: FERROUS SULFATE 325 MG TAB PO SCH (09:00)
[2020-01-18] MEDS: HOME MED 1 EA UNK (Mycophenolate Mofetil [Cellcept] 2 TAB) PO SCH (09:00)
[2020-01-18] MEDS ORDERED: HOME MED 1 EA UNK (Cetirizine Hcl [Zyrtec] 1 TAB) PO SCH (09:00)
[2020-01-18] MEDS ORDERED: LOSARTAN POTASSIUM 50 MG TABLET PO SCH (09:00)
[2020-01-18] MEDS ORDERED: CETIRIZINE HCL 5 MG TABLET PO SCH (09:00)
[2020-01-18] MEDS ORDERED: HOME MED 1 EA UNK (Cholecalciferol (Vitamin D3) [Vitamin D3] 1 TAB) PO SCH (09:00)
[2020-01-18] MEDS ORDERED: VITAMIN D 1000 UNIT TAB PO SCH (09:00)
[2020-01-18] MEDS ORDERED: levETIRAcetam 500 MG TAB PO SCH (09:00)
--- NOTE | 2020-01-18 09:11 | RAD REPORT ---
EXAM DESCRIPTION: US - Renal Ultrasound-Limited - 01/18/2020 8:06 am CLINICAL HISTORY: Follow up right renal hematoma Flank pain COMPARISON: Renal Ultrasound-Complete dated 01/16/2020; Renal Biopsy\CT dated 01/17/2020 FINDINGS: Limited examination of the right kidney was requested. Normal size right kidney. A small h ypoechoic collection measuring 3.4 x 1.8 cm is present lateral to the right kidney likely a small hem atoma. It does not have an acute sonographic features.
[2020-01-18] MEDS: HYDROXYCHLOROQUINE 200MG TAB PO SCH (09:30)
[2020-01-18 09:36] VITALS: O2SAT 100
--- NOTE | 2020-01-18 11:41 | PN ---
Date of Progress Note: 01/18/2020 Subjective: The patient had lupus nephritis, status post kidney biopsy, had small hematoma after kid ginger biopsy, hemoglobin been stable. Repeated ultrasound. Hematomas been stable. The patient is com plaining from right leg pain and swelling. Physical Examination: Vital Signs: Blood pressure 161/77, pulse of 71, afebrile. The patient had good urine output of 120 0. Chest: Clear to auscultation. Heart: S1, S2. Regular. Abdomen: Soft, nontender. Extremities: +1 edema. Tenderness on the right calf. Current Medications: The patient on include, 1.Plaquenil 200 mg b.i.d. 2.Cetirizine. 3.Ferrous sulphate. 4.Losartan 50 mg daily. 5.Tylenol. 6.Keppra. 7.Levothyroxine. 8.IV fluid of normal saline 100 per hour. 9.CellCept 500 b.i.d. 10.Singular. Laboratory Data: WBC 6.9, H and H 10.1/30.1. Sodium 142, potassium 3.8, bicarb 24, BUN 22, creatini ne down to 1.4, GFR up to 40, calcium 8.4, phosphorus 8.4. Assessment And Plan: 1.Acute kidney injury secondary to lupus nephritis, stabilized. We will follow up kidney biopsy. D iscontinue IV fluid. Resume Lasix 20 mg. we will continue Cellcept current dose till we have the re sult of ultrasound. 2.Hypercoagulopathy with the presence of the pain on the right leg. I am going to resume Xarelto of home medication. We will get ultrasound of her lower extremity to evaluate for her DVT. 3.Hypertension, controlled, optimal. Discontinue IV fluid. Start the patient on Lasix and we will follow up. 4.SLE nephritis, as above. 5.Perinephric hematoma, traumatic secondary to kidney biopsy been stable, resuming Xarelto. 6.If the patient stays stable and DVT study is negative, the patient cleared from the renal standpoi nt for discharge planning. MIKE/ANGEL Voice ID: [id number] Report ID: [id number]
[2020-01-18 14:18] LABS: Rheumatoid Factor NEG (NEG)
[2020-01-18] MEDS: ONDANSETRON 4 MG/2 ML VIAL IV PRN (16:45)
--- NOTE | 2020-01-18 17:09 | RAD REPORT ---
EXAM DESCRIPTION: US - Extrem Venous W Compress Biju - 01/18/2020 5:03 pm CLINICAL HISTORY: Leg pain and swelling bilateral COMPARISON: None. TECHNIQUE: Real-time sonographic evaluation of the bilateral lower extremity common femoral, superfi cial femoral, popliteal and posterior tibial veins was performed. FINDINGS: Normal compressibility, flow augmentation, phasic flow and spontaneous flow are identified in the left and right lower extremity common femoral, superficial femoral, popliteal and posterior t ibial veins. No intraluminal filling defects seen. IMPRESSION: No DVT in either lower extremity.
[2020-01-18 17:49] LABS: Hematocrit 30.9 % (36.0-45.0)
[2020-01-18 18:08] VITALS: TEMP 97.9
--- NOTE | 2020-01-18 18:11 | P.DS ---
Admission Date: 01/18/20 Discharge Date: 01/18/20 Disposition: ROUTINE DISCHARGE Discharge Condition: FAIR Reason for Admission: Renal biopsy - Problems (1) Renal hematoma Current Visit: Yes Status: Acute (2) Systemic lupus erythematosus Current Visit: No Status: Active (3) Chronic kidney disease, stage 3, mod decreased GFR Current Visit: Yes Status: Acute (4) Seizure disorder Current Visit: Yes Status: Acute (5) History of DVT (deep vein thrombosis) Current Visit: Yes Status: Acute Brief History of Present Illness: 49-year-old woman with a history of SLE, DVT, status post IVC filter, seizure disorder and chronic kidney disease was referred by her cigarette carton sealer-Dr. Marlena kenyon to be admitted overnight for renal biopsy. Renal biopsy was performed this morning. Patient seen after the biopsy and complaining of a little soreness at the biopsy site at the right flank. CT abdomen done during the biopsy none reported right 3 x 3 cm perinephric hematoma. Noted patient is on Xarelto for DVT anticoagulation. She mentioned her last Xarelto dose was Thursday01/14/2020. Hospital Course: Patient monitored overnight after the kidney biopsy. Repeat renal ultrasound showed stable right perinephric hematoma. Hemoglobin was monitored which was s table. Patient was seen by nephrology-Dr. Bolanos will resumed her Xarelto. Patient was complaining of pain at the back of the right knee and more tightness in the right lower extremity. She has a history of DVT in the right lower extremity. Venous Doppler of both lower extremities were performed which showed no evidence of acute DVT. Her renal function has been stable. Hemoglobin has been staying. Perinephric hematoma is stable. Patient considered stable for discharge per nephrology. Vital Signs/Physical Exam: Temp Pulse Resp BP Pulse Ox 97.9 F 71 17 126/71 99 01/18/20 18:07 01/18/20 18:07 01/18/20 18:07 01/18/20 18:07 01/18/20 18:07 General: Alert, In no apparent distress, Oriented x3 Neck: Supple, JVD not distended Respiratory: Clear to auscultation bilaterally, Normal air movement Cardiovascular: No edema, Regular rate/rhythm, Normal S1 S2 Gastrointestinal: Normal bowel sounds, Soft and benign, No tenderness Musculoskeletal: No swelling Integumentary: No rashes Neurological: Other (Nonfocal) Laboratory Data at Discharge: WBC 6.9 K/uL (4.3-10.9) D 01/18/20 03:22 Hgb 10.5 g/dL (12.0-15.0) L 01/18/20 17:29 Hct 30.9 % (36.0-45.0) L 01/18/20 17:29 Plt Count 176 K/uL (152-406) 01/18/20 03:22 PT 13.6 SECONDS (9.5-12.5) H 01/16/20 15:35 INR 1.16 01/16/20 15:35 APTT 35.2 SECONDS (24.3-36.9) 01/16/20 15:35 Sodium 142 mmol/L (136-145) 01/18/20 03:22 Potassium 3.8 mmol/L (3.5-5.1) 01/18/20 03:22 BUN 22 mg/dL (7-18) H 01/18/20 03:22 Creatinine 1.42 mg/dL (0.55-1.3) H 01/18/20 03:22 Glucose 96 mg/dL (74-106) 01/18/20 03:22 Uric Acid 6.3 mg/dL (2.6-6.0) H 01/16/20 13:23 Phosphorus 3.1 mg/dL (2.5-4.9) 01/18/20 03:22 Total Bilirubin 0.5 mg/dL (0.2-1.0) 01/16/20 13:23 AST 21 U/L (15-37) 01/16/20 13:23 ALT 23 U/L (12-78) 01/16/20 13:23 Alkaline Phosphatase 113 U/L (45-117) 01/16/20 13:23 Home Medications: Cetirizine HCl [Zyrtec] 1 tab PO DAILY 01/16/20 Cholecalciferol (Vitamin D3) [Vitamin D3] 1 tab PO DAILY 01/16/20 Diphenhydramine [Benadryl*] 1 tab PO BEDTIME 01/16/20 Ferrous Sulfate [Ferrous Sulfate*] 1 tab PO DAILY 01/16/20 Furosemide [Lasix*] 1 tab PO SEECOM 01/16/20 Hydroxychloroquine [Plaquenil*] 1 tab PO BID 01/16/20 Levothyroxine [Synthroid*] 1 tab PO [id number] 01/16/20 Losartan Potassium [Cozaar*] 1 tab PO DAILY 01/16/20 Montelukast [Singulair*] 1 tab PO BEDTIME 01/16/20 Mv-Min/Iron/Folic/Calcium/Vitk [Women's Daily Formula Tablet] 1 tab PO DAILY 01/16/20 Mycophenolate Mofetil [Cellcept] 2 tab PO BID 01/16/20 Rivaroxaban [Xarelto*] 1 tab PO BEDTIME 01/16/20 levETIRAcetam [Keppra*] 1 tab PO DAILY 01/16/20 levETIRAcetam [Keppra*] 2 tab PO BEDTIME 01/16/20 Diet: AHA Activity: Ad julio Followup: Clotilde Bolanos MD [ACTIVE - CAN ADMIT] - 1 Week Time spent managing pt's care (in minutes): 36
[2020-01-18] MEDS ORDERED: RIVAROXABAN 15 MG TABLET PO SCH (21:00)
[2020-01-18] MEDS ORDERED: MYCOPHENOLATE MOFETIL PO SCH (21:00)
[2020-01-18] MEDS: levETIRAcetam 500 MG TAB PO SCH (21:04)
[2020-01-18 21:05] VITALS: BP 144/77
[2020-01-19] MEDS ORDERED: FUROSEMIDE 20 MG TABLET PO SCH (09:00)
[2020-01-19 21:07] LABS: HBsAG Nonreactive (Nonreactive)
[2020-01-20 21:44] LABS: Albumin, (SPE) 3.7 g/dL (3.8-4.8); Alpha-1-Globulins 0.3 g/dL (0.2-0.3); Alpha-2-Globulins 0.9 g/dL (0.5-0.9); Gamma Globulins 0.9 g/dL (0.8-1.7); INTERPRETATION REPORT
[2020-01-21 15:28] LABS: HIV AG/AB 4TH GEN Non-reactive (Non-reactive)
[2020-01-22 21:19] LABS: Albumin, (SPE) 3.2 g/dL (3.8-4.8); Alpha-1-Globulins 0.3 g/dL (0.2-0.3); Alpha-2-Globulins 0.8 g/dL (0.5-0.9); Gamma Globulins 0.8 g/dL (0.8-1.7); INTERPRETATION REPORT
== END 2020-01-18 21:10 | disposition home or self-care (01) | DRG 699 ==
LOC: 2ND 11:21 → OBSVTOIN 01-18 09:36
PROVIDERS: ADMIT Internal Medicine; ATTEND Internal Medicine
PROC: 0TB03ZX Excision of Right Kidney, Percutaneous Approach, Diagnostic (ICD-10-PCS; principal; 2020-01-18)
DX: S37.021A Major contusion of right kidney, initial encounter (principal); N17.9 Acute kidney failure, unspecified; D68.59 Other primary thrombophilia; M32.14 Glomerular disease in systemic lupus erythematosus; E78.5 Hyperlipidemia, unspecified; I12.9 Hypertensive chronic kidney disease with stage 1 through stage 4 chronic kidney disease, or unspecified chronic kidney disease; N18.30 Chronic kidney disease, stage 3 unspecified; M32.9 Systemic lupus erythematosus, unspecified; E55.9 Vitamin D deficiency, unspecified; R60.0 Localized edema; Z79.890 Hormone replacement therapy; Z88.5 Allergy status to narcotic agent; Z79.01 Long term (current) use of anticoagulants; Z86.718 Personal history of other venous thrombosis and embolism; Z88.8 Allergy status to other drugs, medicaments and biological substances; Z79.899 Other long term (current) drug therapy; Z20.828 Contact with and (suspected) exposure to other viral communicable diseases
CPT/HCPCS: 36415; 76770; 76775; 80053; 80069; 80074; 81003; 81015; 82435; 82550; 82553; 82570; 82805; 83520; 83970; 84100; 84132; 84156; 84165; 84300; 84550; 85014; 85018; 85025; 85610; 85730; 86021; 86038; 86160; 86225; 86334; 86430; 87086; 87088; 87389; 88300; 93970; G0378; J2250; J2310; J2405; J3010; J7030; J7120; U0003